=== PATIENT | male | born 1935 | race Caucasian/White ===

== ENCOUNTER → 2018-05-29 11:22 | Outpatient (CLI) | payer MEDICARE, SELFPAY ==
--- NOTE | 2018-05-29 | DI.RAD.S_ITS ---
PROCEDURE: XR CHEST 2V INDICATIONS: COUGH TECHNIQUE: 2 views of the chest were acquired. COMPARISON: [facility], , ABDOMEN ACUTE SERIES, 10/01/2012, 15:02. [facility], , CHEST 2 VIEW, 06/07/2010, 14:14. FINDINGS: Surgical changes and devices: Median sternotomy and CABG. Lungs and pleura: Elevated left hemidiaphragm with compressive atelectasis left lower lobe. No pleural effusions or pneumothorax. Lungs are otherwise clear. Azygous lobe. Mediastinum: Mediastinal contours are normal. Heart size is enlarged. Tortuous aorta. Bones and chest wall: No suspicious bony abnormalities. Thoracic spondylosis. Soft tissues appear unremarkable. IMPRESSION: Chronically elevated left hemidiaphragm with compressive atelectasis or scarring left lower lobe. No acute cardiopulmonary abnormality. Dictated by: Christopher Santillan M.D. on 05/29/2018 at 13:40 Approved by: Christopher Santillan M.D. on 05/29/2018 at 13:43
== END ==
PROVIDERS: Family Provider Family Medicine; PCP Family Medicine; Visit Provider Family Medicine
DX: R05 Cough (principal)
CPT/HCPCS: 71046

== ENCOUNTER → 2018-06-05 13:21 | Outpatient (CLI) | payer MEDICARE, SELFPAY ==
--- NOTE | 2018-06-05 | DI.CT.S_ITS ---
PROCEDURE: CT CHEST WO CON INDICATIONS: COUGH TECHNIQUE: Noncontrast 5 mm thick sections acquired from the pulmonary apices to the posterior costophrenic angles. 7 mm thick coronal and sagittal MIP reformats were then acquired. For radiation dose reduction, the following was used: automated exposure control, adjustment of mA and/or kV according to patient size. COMPARISON: [facility], CR, ABDOMEN ACUTE SERIES, 10/01/2012, 15:02. [facility], CT, KIDNEY/ URETER/BLADDER, 05/15/2012, 16:09. [facility], CT, CT-IVP, 05/24/2012, 14:06. [facility], CT, PE STUDY (CTA CHEST), 06/07/2010, 14:50. [facility], CR, CHEST 2 VIEW, 06/07/2010, 14:14. FINDINGS: Image quality: Excellent. Lungs and pleura: No acute air space opacities. Asymmetric elevation of the left hemidiaphragm, previously present, no underlying pneumonia or neoplasm found. Prior CABG. Left lung base atelectasis. No pleural effusions or pneumothorax. Central and peripheral airways are patent and normal in caliber. Mediastinum: Heart size is normal. No pericardial effusion. No mediastinal adenopathy by size criteria. Thoracic aorta and central pulmonary arteries are normal in size. Esophagus is normal in caliber. No hiatal hernia. Bones and chest wall: No suspicious bony lesions. No vertebral body compression fractures. No axillary or supraclavicular adenopathy by size criteria. Thyroid gland appears normal where well visualized.. Abdomen: Visualized upper abdominal solid organs and bowel loops appear normal in the absence of contrast. IMPRESSION: Chronic elevation of the left diaphragm is secondary left lung base atelectasis. No underlying pneumonia or neoplasm is suspected. Dictated by: Michael Ventura M.D. on 06/05/2018 at 14:34 Approved by: Michael Ventura M.D. on 06/05/2018 at 14:38
== END ==
PROVIDERS: Family Provider Family Medicine; PCP Family Medicine; Visit Provider Family Medicine
DX: R05 Cough (principal)
CPT/HCPCS: 71250

== ENCOUNTER → 2018-11-30 13:41 | Outpatient (CLI) | payer MEDICARE, SELFPAY ==
--- NOTE | 2018-11-30 | DI.US.S_ITS ---
PROCEDURE: US ABDOMEN COMPLETE INDICATIONS: ABNORMAL LEVEL OF SERUM LEVELS TECHNIQUE: Real-time scanning was performed of the abdominal and retroperitoneal organs, with image documentation. COMPARISON: [facility], CT, KIDNEY/ URETER/BLADDER, 05/15/2012, 16:09. FINDINGS: Liver: Liver is diffusely increased in echogenicity. No focal hepatic abnormalities identified. Normal hepatic size. Gallbladder: No gallstones identified. Normal gallbladder wall. No pericholecystic fluid. Negative sonographic Govea sign. Biliary ducts: Intrahepatic bile ducts are non-dilated. Extrahepatic bile duct caliber measures 5.0 mm. Normal is 6-7 mm or less in diameter, or 10 mm or less post-cholecystectomy. Pancreas: Visualized portions of the pancreas are sonographically normal. Spleen: Spleen is normal in size and homogeneous in echotexture. Kidneys: Kidneys are normal in size and echotexture. Right kidney measures 10.8 cm long; left kidney measures 11.7 cm long. No hydronephrosis or nephrolithiasis. No solid masses. Multiple right renal cysts, largest measuring 5.5 cm Aorta: Visualized aorta is normal in caliber at less than 3 cm. Iliacs: Proximal common iliac arteries are normal in caliber at less than 2.5 cm. IVC: Intrahepatic inferior vena cava is patent. Miscellaneous: No free abdominal fluid. IMPRESSION: 1. Increased hepatic echogenicity noted possibly related to hepatic steatosis but other sources of hepatocellular disease cannot be excluded. Recommend clinical correlation. 2. Multiple right renal cysts. Dictated by: Hay ARANA Interpreted: Issac Kirkland MD on 11/30/2018 at 16:38 Approved by: Issac Kirkland M.D. on 11/30/2018 at 17:24
== END ==
PROVIDERS: Family Provider Family Medicine; PCP Family Medicine; Visit Provider Family Medicine
DX: R74.8 Abnormal levels of other serum enzymes (principal); N28.1 Cyst of kidney, acquired
CPT/HCPCS: 76700

== ENCOUNTER 2021-03-19 12:22 | Emergency (ER) | payer MEDICARE, SELFPAY ==
[2021-03-19 12:31] VITALS: BP 152/91; PULSE 80; RESP 16; TEMP 36.7; O2SAT 97; BMI 27.1
--- NOTE | 2021-03-19 12:34 | DI.RAD.S_ITS ---
PROCEDURE: XR RIBS LT MIN 3V W CXR1V INDICATIONS: fall against a tree TECHNIQUE: 4 views of the left ribs were acquired, along with a single view chest. COMPARISON: [facility], , XR CHEST 2V, 05/29/2018, 11:04. FINDINGS: Surgical changes and devices: Multiple median sternotomy wires are intact. Mediastinal surgical clips compatible with prior revascularization procedure. Bones and chest wall: No fractures or dislocations. No definite acute displaced rib fractures. No suspicious bony lesions. Overlying soft tissues appear unremarkable. Lungs and pleura: Stable eventration of the left hemidiaphragm. Right lung is clear. Streaky left basilar opacities likely representing atelectasis. No focal consolidation. No pleural effusions or pneumothorax. Mediastinum: Mediastinal contours appear normal. Heart size is normal. IMPRESSION: 1. Chest without acute cardiopulmonary abnormalities. No acute, displaced rib fractures identified. 2. Left basilar atelectasis. Dictated by: Alen Li M.D. on 03/19/2021 at 13:22 Approved by: Alen Li M.D. on 03/19/2021 at 13:34
--- NOTE | 2021-03-19 12:45 | DI.RAD.S_ITS ---
PROCEDURE: XR KNEE RT 3V INDICATIONS: knee pain TECHNIQUE: 3 views of the knee were acquired. COMPARISON: None. FINDINGS: Bones: No acute fractures or dislocations. No suspicious bony lesions. Tricompartmental degenerative changes of the right knee. Soft tissues: Moderate-sized joint effusion. No suspicious soft tissue calcifications. Soft tissue swelling over the anterior right knee near the level of the patella. IMPRESSION: 1. Right knee without acute fracture or dislocation. 2. Moderate-sized joint effusion. 3. Mild soft tissue swelling over the anterior knee. 4. Tricompartmental degenerative change of the right knee. Dictated by: Alen Li M.D. on 03/19/2021 at 13:34 Approved by: Alen Li M.D. on 03/19/2021 at 13:35
--- NOTE | 2021-03-19 13:36 | ED_ITS ---
HPI - Back Pain/Injury General Chief Complaint: Back Pain/Injury Stated Complaint: back and right knee pain Time Seen by Provider: 03/19/21 12:35 Source: patient Mode of arrival: Ambulatory Limitations: no limitations History of Present Illness HPI Narrative: Patient is an 85-year-old male who is here for evaluation of right knee pain and also left-sided flank pain. Patient states that a couple days ago he was out in his yard and tripped and fell into 1 of his fruit trees and hit his left side. Has bruising on that side. His painful to touch. Painful to take big deep breaths. He has not had any fevers or coughing. Is also having right knee discomfort that was unrelated to this fall. Related Data Home Medications Medication Instructions Recorded Confirmed aspirin 81 mg PO QDAY #0 06/17/13 06/26/19 nebivolol [Bystolic] 10 mg PO QDAY #0 06/17/13 06/26/19 rosuvastatin [Crestor] 5 mg PO QDAY #0 tab 06/17/13 06/26/19 sertraline [Zoloft] 150 mg PO QDAY #0 06/17/13 06/26/19 Respironics System One Series CPAP #1 ea 03/19/19 06/26/19 Previous Rx's Medication Instructions Recorded tramadol [Ultram] 50 mg PO TID PRN #14 tab 03/19/21 Allergies Allergy/AdvReac Type Severity Reaction Status Date / Time No Known Allergies Allergy Uncoded 06/26/19 11:09 Review of Systems Constitutional Constitutional: Denies fever(s) Cardiovascular Cardiovascular: Denies chest pain Respiratory Respiratory: Reports pain on inspiration Gastrointestinal Gastrointestinal: Denies abdominal pain Musculoskeletal Comments: Right knee pain, left-sided rib pain Integumentary/Breasts Comments: Bruising on left side of ribs Hematologic/Lymphatic On Anticoagulants: No Allergic/Immunologic Allergic/Immunologic: Reports system reviewed and no additional complaints, except as documented Patient History Medical History Colitis Excessive daytime sleepiness Hyperlipidemia Hypertension Macular degeneration Obstructive sleep apnea of adult Pericardial effusion, acute Snoring Vertigo Surgical History H/O mitral valve replacement with mechanical valve (~2009) S/P CABG (coronary artery bypass graft) Social History marital status: occupational status: previously employed Previous occupational history: Teacher Smoking Status: Never smoker substance use type: does not use Smoking Status: Never smoker Exam Initial Vital Signs Initial Vital Signs: Vital Signs Temperature 98.1 F 03/19/21 12:31 Pulse Rate 80 03/19/21 12:31 Respiratory Rate 16 03/19/21 12:31 Blood Pressure 152/91 H 03/19/21 12:31 Pulse Oximetry 97 03/19/21 12:31 Const General: cooperative and comfortable Limitations: mental status not altered HENMT Head: normal to inspection and normocephalic Chest Other: Tenderness to palpation left lower ribs mid axillary line. No crepitus. Resp Effort & Inspection: normal respiratory effort Cardio Rate: regular rate Skin Other: Bruising left-sided ribs Neuro General: patient alert and patient awake Cognition: normal cognition Speech: speech normal Extrem General: capillary refill normal Psych Appearance: well kempt Course Orders Ordered: ED Orders 03/19/21 12:34 XR ribs LT min 3V w CXR1V Stat 03/19/21 12:45 XR knee RT 3V Stat Vital Signs Vital signs: Vital Signs - 8 hr 03/19/21 12:31 Temperature 98.1 F Pulse Rate 80 Respiratory Rate 16 Blood Pressure 152/91 H Pulse Oximetry 97 MDM - Back Pain/Injury Imaging Data Rib x-ray: Radiologist's Impression: [address] [id number] ReportSigned Patient: Vinay Hendrix R#: [id number]: 5Acct:[id number]/Sex: 85 / MDate of Service: 03/19/21Loc: EDAccession Number: [id number] Procedure: XR ribs LT min 3V w CXR1V Ordering Provider: Alec Hollins D.O. PROCEDURE: XR RIBS LT MIN 3V W CXR1V INDICATIONS: fall against a tree TECHNIQUE: 4 views of the left ribs were acquired, along with a single view chest. COMPARISON: [facility], , XR CHEST 2V, 05/29/2018, 11:04. FINDINGS: Surgical changes and devices: Multiple median sternotomy wires are intact. Mediastinal surgical clips compatible with prior revascularization procedure. Bones and chest wall: No fractures or dislocations. No definite acute displaced rib fractures. No suspicious bony lesions. Overlying soft tissues appear unremarkable. Lungs and pleura: Stable eventration of the left hemidiaphragm. Right lung is clear. Streaky left basilar opacities likely representing atelectasis. No focal consolidation. No pleural effusions or pneumothorax. Mediastinum: Mediastinal contours appear normal. Heart size is normal. IMPRESSION: 1. Chest without acute cardiopulmonary abnormalities. No acute, displaced rib fractures identified. 2. Left basilar atelectasis. Dictated by: Alen Li M.D. on 03/19/2021 at 13:22 Approved by: Alen Li M.D. on 03/19/2021 at 13:34 Extremity x-ray #1: Radiologist's Impression: [address] [id number] ReportSigned Patient: Vinay Hendrix VMR#: [id number]: 5Acct:[id number]/Sex: 85 / MDate of Service: 03/19/21Loc: EDAccession Number: [id number] Procedure: XR knee RT 3V Ordering Provider: Alec Hollins D.O. PROCEDURE: XR KNEE RT 3V INDICATIONS: knee pain TECHNIQUE: 3 views of the knee were acquired. COMPARISON: None. FINDINGS: Bones: No acute fractures or dislocations. No suspicious bony lesions. Tricompartmental degenerative changes of the right knee. Soft tissues: Moderate-sized joint effusion. No suspicious soft tissue calcifications. Soft tissue swelling over the anterior right knee near the level of the patella. IMPRESSION: 1. Right knee without acute fracture or dislocation. 2. Moderate-sized joint effusion. 3. Mild soft tissue swelling over the anterior knee. 4. Tricompartmental degenerative change of the right knee. Dictated by: Alen Li M.D. on 03/19/2021 at 13:34 Approved by: Alen Li M.D. on 03/19/2021 at 13:35 [facility] Narrative Medical decision making narrative: Chest x-ray and knee x-ray unremarkable. There are no displaced rib fractures. He is not in respiratory distress. He has had bruising over his left flank. He is afebrile. I did discuss the limitations of the chest x-ray and that there potentially is a nondisplaced rib fracture. He does have an incentive spirometer at home after a hospitalization earlier this month. He does have tenderness to palpation throughout his right knee however there were no fractures. He was given return precautions. Expressed understanding agreement. Discharge Plan Departure Patient Disposition: Home Clinical Impression: Contusion of rib on left side Instructions: DI for Rib Contusion Activity Restrictions/Additional Instructions: I do recommend that you use the incentive spirometer at home every couple hours. Use the pain medication as needed. Despite all of this coughing and sneezing will potentially be somewhat painful. You can hold a pillow over the left side of your chest as this may help the symptoms. Contact your primary provider for follow-up. Return to the emergency department for any new or worsening symptoms Prescriptions: New tramadol [Ultram] 50 mg tablet 50 mg PO TID PRN (Reason: pain) Qty: 14 RF: 0 No Action sertraline [Zoloft] 100 MG tablet 150 mg PO QDAY Qty: 0 RF: 0 aspirin 81 MG tablet,delayed release (DR/EC) 81 mg PO QDAY Qty: 0 RF: 0 rosuvastatin [Crestor] 5 MG tablet 5 mg PO QDAY Qty: 0 RF: 0 nebivolol [Bystolic] 10 MG tablet 10 mg PO QDAY Qty: 0 RF: 0 (DME) Respironics System One Series CPAP Qty: 1 RF: 0 Referrals: Tarun Paulino MD [Primary Care Provider] -
[2021-03-19 14:11] VITALS: BP 140/91; PULSE 68; RESP 16; O2SAT 96
== END 2021-03-19 14:12 | disposition home or self-care (01) ==
PROVIDERS: Emergency Provider Emergency Medicine; Family Provider Family Medicine; PCP Family Medicine
DX: R07.81 Pleurodynia (principal); S20.212A Contusion of left front wall of thorax, initial encounter; W19.XXXA Unspecified fall, initial encounter
CPT/HCPCS: 71101; 73562; 99281; 99283

== ENCOUNTER 2022-12-24 11:56 | Emergency (ER) | payer MEDICARE, SELFPAY ==
[2022-12-24] VITALS (7 sets, daily range): BP systolic 114–135; BP diastolic 60–72; PULSE 64–77; RESP 16–18; TEMP 36.7; O2SAT 92–96; BMI 29.1
--- NOTE | 2022-12-24 12:22 | DI.RAD.S_ITS ---
PROCEDURE: XR CHEST 2V INDICATIONS: coughing, rhonchi, sats 90's TECHNIQUE: 2 views of the chest were acquired. COMPARISON: [facility], CR, XR CHEST 2V, 05/29/2018, 11:04. FINDINGS: Surgical changes and devices: Status post median sternotomy. Lungs and pleura: There is elevation of the left hemidiaphragm with adjacent compressive atelectasis of the left lower lobe. Possible azygos lobe. Mediastinum: Mediastinal contours are normal. Heart size is normal. Bones and chest wall: No suspicious bony abnormalities. Soft tissues appear unremarkable. IMPRESSION: Elevation of the left hemidiaphragm with adjacent compressive atelectasis unchanged compared to 2018. No acute abnormality. Dictated by: Ezra Cristobal M.D. on 12/24/2022 at 12:34 Approved by: Ezra Cristobal M.D. on 12/24/2022 at 12:43
--- NOTE | 2022-12-24 13:48 | ED.URI ---
HPI - URI/Sore Throat <GURDEEP Zuleta - Last Filed: 12/24/22 15:59> General Chief Complaint: Upper Respiratory Symptoms Stated Complaint: Sick for a week, low oxy, fever Time Seen by Provider: 12/24/22 13:35 History of Present Illness HPI Narrative: This is an 87 year gentleman who presents to the emergency department with his concerned about his upper respiratory cough, fatigue, and symptoms which have been worsening over the last week. Patient and his report increased fatigue over the last 2 days, short of breath with activity, decreased oxygen saturation and a cough. He denies having a large amount of sputum. States that he has history of BREE, also has history of sternotomy with mitral valve repair 15 years ago, has completed cardiac rehab. The hospital. 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 He is not anticoagulated, denies fever, chills, states he vomited 1 time a week ago but no vomiting recently. States that he feels nauseated, denies weakness, difficulty breathing or wheezing. Related Data Home Medications Medication Instructions Recorded Confirmed aspirin 81 mg tablet,delayed 81 mg PO QDAY ##0 06/17/13 07/20/22 release sertraline 100 mg tablet (Zoloft) 150 mg PO QDAY ##0 06/17/13 07/20/22 Respironics System One Series CPAP #1 ea 03/19/19 07/20/22 atenolol PO DAILY 07/20/22 tamsulosin 0.4 mg capsule 0.8 mg PO DAILY 07/20/22 07/20/22 Allergies Allergy/AdvReac Type Severity Reaction Status Date / Time No Known Drug Allergies Allergy Verified 12/24/22 14:35 Review of Systems <GURDEEP Zuleta - Last Filed: 12/24/22 15:59> Review of Systems ROS Unobtainable: All systems reviewed & are unremarkable except as noted in HPI and below Patient History <GURDEEP Zuleta - Last Filed: 12/24/22 15:59> Medical History Colitis Complex sleep apnea syndrome Excessive daytime sleepiness Hyperlipidemia Hypertension Macular degeneration Obstructive sleep apnea of adult Pericardial effusion, acute Snoring Vertigo Surgical History H/O mitral valve replacement with mechanical valve (~2009) S/P CABG (coronary artery bypass graft) Social History marital status: occupational status: previously employed Previous occupational history: Teacher Smoking Status: Never smoker substance use type: does not use Smoking Status: Never smoker Exam <GURDEEP Zuleta - Last Filed: 12/24/22 15:59> Narrative Exam Narrative: Reviewed vitals signs and nursing notes. General: cooperative, in no acute distress, well groomed HEENT: symmetrical facial expressions, moist mucous membranes, neck is supple CV: regular rate and rhythm with murmur, warm extremities Respiratory:normal work of breathing, without tachypnea, he has crackles to the left middle lobe region anterior and posteriorly without decreased breath sounds otherwise. Without stridor or increased work of breathing he has an occasional cough, nonproductive GI: abdomen soft protuberant,, nontender to palpation in all quadrants, nondistended, without masses, rebound tenderness or CVA tenderness bilaterally. Patient passing gas MSK: moves all extremities, neurovascularly intact, no weakness, normal tone Skin: brisk capillary refill, without rash or wound Neuro: normal speech and cognition, A&O x3, ambulatory, clear speech Initial Vital Signs Initial Vital Signs: Vital Signs Temperature 98.0 F 12/24/22 12:10 Pulse Rate 74 12/24/22 12:10 Respiratory Rate 16 12/24/22 12:10 Blood Pressure 114/64 12/24/22 12:10 Pulse Oximetry 92 12/24/22 12:10 Oxygen Delivery Method Room Air 12/24/22 12:10 <Alec Hollins DO - Last Filed: 12/24/22 16:34> Initial Vital Signs Initial Vital Signs: Vital Signs Temperature 98.0 F 12/24/22 12:10 Pulse Rate 74 12/24/22 12:10 Respiratory Rate 16 12/24/22 12:10 Blood Pressure 114/64 12/24/22 12:10 Pulse Oximetry 92 12/24/22 12:10 Oxygen Delivery Method Room Air 12/24/22 12:10 Course <GURDEEP Zuleta - Last Filed: 12/24/22 15:59> Orders Ordered: ED Orders 12/24/22 12:19 Respiratory Panel (Film Array) Stat 12/24/22 12:22 XR chest 2V Stat 12/24/22 13:49 BNP [NT-proBNP (BNP-Adult 18+)] Stat CBC Auto Diff [Complete Blood Count AUTO DIFF] Stat CMP [Comprehensive Metabolic Panel] Stat CRP [C-Reactive Protein Quant] Stat Lactate (Lactic Acid) Stat Magnesium Stat 12/24/22 14:02 EKG-12 Lead Stat Discontinued Medications Amoxicillin/Clavulanate Potassium (Amoxicillin/Clav 875/125 Mg) 1 tab PO NOW ONE Stop: 12/24/22 13:48 Last Admin: 12/24/22 14:22 Dose: 1 tab Documented By: AT Doxycycline Hyclate (Doxycycline Hyclate 100 Mg Tablet) 100 mg PO NOW ONE Stop: 12/24/22 13:48 Last Admin: 12/24/22 14:22 Dose: 100 mg Documented By: AT Prednisone (Prednisone 20 Mg Tablet) 20 mg PO NOW ONE Stop: 12/24/22 13:48 Last Admin: 12/24/22 14:22 Dose: 20 mg Documented By: AT Vital Signs Vital signs: Vital Signs - 8 hr 12/24/22 12:10 12/24/22 13:42 12/24/22 14:21 Temperature 98.0 F Pulse Rate 74 64 Respiratory Rate 16 18 Blood Pressure 114/64 119/60 Pulse Oximetry 92 96 92 Oxygen Delivery Method Room Air Room Air Room Air 12/24/22 13:41 12/24/22 14:00 12/24/22 14:25 Temperature Pulse Rate 64 66 Respiratory Rate Blood Pressure 135/72 Pulse Oximetry 92 93 Oxygen Delivery Method Room Air Room Air 12/24/22 14:25 12/24/22 14:30 Temperature Pulse Rate 77 69 Respiratory Rate Blood Pressure Pulse Oximetry Oxygen Delivery Method <Alec Hollins DO - Last Filed: 12/24/22 16:34> Orders Ordered: ED Orders 12/24/22 12:19 Respiratory Panel (Film Array) Stat 12/24/22 12:22 XR chest 2V Stat 12/24/22 13:49 BNP [NT-proBNP (BNP-Adult 18+)] Stat CBC Auto Diff [Complete Blood Count AUTO DIFF] Stat CMP [Comprehensive Metabolic Panel] Stat CRP [C-Reactive Protein Quant] Stat Lactate (Lactic Acid) Stat Magnesium Stat 12/24/22 14:02 EKG-12 Lead Stat Discontinued Medications Amoxicillin/Clavulanate Potassium (Amoxicillin/Clav 875/125 Mg) 1 tab PO NOW ONE Stop: 12/24/22 13:48 Last Admin: 12/24/22 14:22 Dose: 1 tab Documented By: AT Doxycycline Hyclate (Doxycycline Hyclate 100 Mg Tablet) 100 mg PO NOW ONE Stop: 12/24/22 13:48 Last Admin: 12/24/22 14:22 Dose: 100 mg Documented By: AT Prednisone (Prednisone 20 Mg Tablet) 20 mg PO NOW ONE Stop: 12/24/22 13:48 Last Admin: 12/24/22 14:22 Dose: 20 mg Documented By: AT Vital Signs Vital signs: Vital Signs - 8 hr 12/24/22 12:10 12/24/22 13:42 12/24/22 14:21 Temperature 98.0 F Pulse Rate 74 64 Respiratory Rate 16 18 Blood Pressure 114/64 119/60 Pulse Oximetry 92 96 92 Oxygen Delivery Method Room Air Room Air Room Air 12/24/22 13:41 12/24/22 14:00 12/24/22 14:25 Temperature Pulse Rate 64 66 Respiratory Rate Blood Pressure 135/72 Pulse Oximetry 92 93 Oxygen Delivery Method Room Air Room Air 12/24/22 14:25 12/24/22 14:30 Temperature Pulse Rate 77 69 Respiratory Rate Blood Pressure Pulse Oximetry Oxygen Delivery Method MDM - URI/Sore Throat <Yadira Bain [facility] - Last Filed: 12/24/22 15:59> Lab Data 12/24/22 13:49 12/24/22 13:49 Labs: Lab Results 12/24/22 12/24/22 12/24/22 Range/Units 12:19 13:49 13:49 WBC 8.0 (4.5-11.0) X10^3/uL RBC 3.58 L (4.5-5.9) X10^6/uL Hgb 11.5 L (13.5-17.5) g/dL Hct 34.5 L (41-53) % MCV 96.2 (80-100) fL MCH 32.0 (26-34) PG MCHC 33.3 (30-36) % RDW 13.8 (11.6-14.8) % Plt Count 153 (150-400) X10^3/uL Neut % (Auto) 73.9 (50-75) % Lymph % (Auto) 18.4 L (25-40) % Dolores % (Auto) 6.2 (3-14) % Eos % (Auto) 1.3 L (2-4) % Baso % (Auto) 0.2 (0-2) % Neut # (Auto) 5900 (0340-1132) /uL Lymph # (Auto) 1500 (0076-0951) /uL Dolores # (Auto) 500 (0-900) /uL Eos # (Auto) 100 (0-450) /uL Baso # (Auto) 0 (0-100) /uL Sodium 137 (137-145) mmol/L Potassium 3.1 L (3.4-5.1) mmol/L Chloride 104 (98-107) mmol/L Carbon Dioxide 27 (22-32) mmol/L BUN 12 (9-20) mg/dL Creatinine 0.78 (0.66-1.25) mg/dL Estimated GFR > 60 (>60) mL/min BUN/Creatinine Ratio 15.4 (6-22) Glucose 110 (80-110) mg/dL Lactate (0.7-2.1) mmol/L Calcium 8.3 L (8.4-10.2) mg/dL Magnesium (1.6-2.3) mg/dL Total Bilirubin 0.8 (0.2-1.3) mg/dL AST 23 (17-59) IU/L ALT 23 (<50) IU/L Alkaline Phosphatase 81 (38-126) U/L C-Reactive Protein (<1.0) mg/dL NT-Pro-B Natriuret Pep 1970 H (<450) pg/mL Total Protein 5.9 L (6.3-8.2) g/dL Albumin 3.3 L (3.5-5.0) g/dL Globulin 2.6 (1.7-4.1) g/dL Albumin/Globulin Ratio 1.3 (1.0-2.8) Chlamy pneumoniae PCR Not detected (Not Detect) Adenovirus (PCR) Not detected (Not Detect) B. pertussis DNA (PCR) Not detected (Not Detecte) B.parapertussis DNA PCR Not detected (Not Detecte) Coronavirus OC43 (PCR) Not detected (Not Detect) Coronavirus HKU1 (PCR) Not detected (Not Detect) Coronavirus 229E (PCR) Not detected (Not Detect) SARS-CoV-2 (PCR) Detected H (Not Detecte) Coronavirus NL63 (PCR) Not detected (Not Detect) Human Metapneumovir PCR Not detected (Not Detect) Influenza Type A (PCR) Not detected (Not Detect) Influenza Type B (PCR) Not detected (Not Detect) M. pneumoniae (PCR) Not detected (Not Detect) Parainfluenza 1 (PCR) Not detected (Not Detect) Parainfluenza 2 (PCR) Not detected (Not Detect) Parainfluenza 3 (PCR) Not detected (Not Detect) Parainfluenza 4 (PCR) Not detected (Not Detect) RSV (PCR) Not detected (Not Detect) Entero/Rhino (PCR) Not detected (Not Detect) 12/24/22 12/24/22 12/24/22 Range/Units 13:49 13:49 13:49 WBC (4.5-11.0) X10^3/uL RBC (4.5-5.9) X10^6/uL Hgb (13.5-17.5) g/dL Hct (41-53) % MCV (80-100) fL MCH (26-34) PG MCHC (30-36) % RDW (11.6-14.8) % Plt Count (150-400) X10^3/uL Neut % (Auto) (50-75) % Lymph % (Auto) (25-40) % Dolores % (Auto) (3-14) % Eos % (Auto) (2-4) % Baso % (Auto) (0-2) % Neut # (Auto) (2856-2579) /uL Lymph # (Auto) (0436-3502) /uL Dolores # (Auto) (0-900) /uL Eos # (Auto) (0-450) /uL Baso # (Auto) (0-100) /uL Sodium (137-145) mmol/L Potassium (3.4-5.1) mmol/L Chloride (98-107) mmol/L Carbon Dioxide (22-32) mmol/L BUN (9-20) mg/dL Creatinine (0.66-1.25) mg/dL Estimated GFR (>60) mL/min BUN/Creatinine Ratio (6-22) Glucose (80-110) mg/dL Lactate 1.0 (0.7-2.1) mmol/L Calcium (8.4-10.2) mg/dL Magnesium 1.9 (1.6-2.3) mg/dL Total Bilirubin (0.2-1.3) mg/dL AST (17-59) IU/L ALT (<50) IU/L Alkaline Phosphatase (38-126) U/L C-Reactive Protein 15.2 H (<1.0) mg/dL NT-Pro-B Natriuret Pep (<450) pg/mL Total Protein (6.3-8.2) g/dL Albumin (3.5-5.0) g/dL Globulin (1.7-4.1) g/dL Albumin/Globulin Ratio (1.0-2.8) Chlamy pneumoniae PCR (Not Detect) Adenovirus (PCR) (Not Detect) B. pertussis DNA (PCR) (Not Detecte) B.parapertussis DNA PCR (Not Detecte) Coronavirus OC43 (PCR) (Not Detect) Coronavirus HKU1 (PCR) (Not Detect) Coronavirus 229E (PCR) (Not Detect) SARS-CoV-2 (PCR) (Not Detecte) Coronavirus NL63 (PCR) (Not Detect) Human Metapneumovir PCR (Not Detect) Influenza Type A (PCR) (Not Detect) Influenza Type B (PCR) (Not Detect) M. pneumoniae (PCR) (Not Detect) Parainfluenza 1 (PCR) (Not Detect) Parainfluenza 2 (PCR) (Not Detect) Parainfluenza 3 (PCR) (Not Detect) Parainfluenza 4 (PCR) (Not Detect) RSV (PCR) (Not Detect) Entero/Rhino (PCR) (Not Detect) Imaging Data Chest x-ray: Radiologist's Impression: PROCEDURE:? XR CHEST 2V ? INDICATIONS:? coughing, rhonchi, sats 90's ? TECHNIQUE:? 2 views of the chest were acquired.? ? COMPARISON:? [facility], CR, XR CHEST 2V, 05/29/2018, 11:04. ? FINDINGS:? ? Surgical changes and devices:? Status post median sternotomy. ? Lungs and pleura:? There is elevation of the left hemidiaphragm with adjacent compressive atelectasis of the left lower lobe.? Possible azygos lobe. ? Mediastinum:? Mediastinal contours are normal.? Heart size is normal.? ? Bones and chest wall:? No suspicious bony abnormalities.? Soft tissues appear unremarkable.? ? IMPRESSION:? Elevation of the left hemidiaphragm with adjacent compressive atelectasis unchanged compared to 2018. No acute abnormality.? ? ? Dictated by: Ezra Cristobal M.D. on 12/24/2022 at 12:34 ? ? Approved by: Ezra Cristobal M.D. on 12/24/2022 at 12:43 ? MDM Narrative Medical decision making narrative: Chief Complaint: Upper respiratory infection/concern for pneumonia Independent historian: Patient Differential diagnoses include but are not limited to: Acute viral process, CHF exacerbation, bronchitis, pneumonia, ACS, pulmonary embolus, reactive airway disease, I have independently reviewed the patient's vital signs and nursing notes as well as prior records if available. Pertinent lab findings reviewed: Respiratory panel is positive for COVID-19 Pertinent Imaging reviewed: Two-view chest x-ray without acute abnormality however patient has a left hemidiaphragm, soft abdomen to palpation, has crackles to his left middle/lower lobe anterior and posteriorly Clinical decision rules or scores evaluated: Curb 65 indicates low risk for mortality at 30 days and consider outpatient treatment. Course of care: Patient's respiratory panel came back positive for COVID-19, he has mild crackles to the left lower quadrant, on repeat pulse oximetry he has remained in the 90s without supplemental O2. He is not have increased work of breathing, hypoxia, productive cough, fever chills, he does not have tachycardia although he is on atenolol. He does not have severe symptoms of respiratory illness today.. After I examined him any crackles to the left middle lobe, lab work and antibiotics were ordered prior to the COVID swabbing complete. When this came back positive and he has not received his medications yet these were canceled and unfortunately due to the EMR not discontinuing these medications on the nurse's Mar, he received a dose of prednisone, Augmentin and doxycycline. I do not intend to continue these medications as he does not have a patchy focal infiltrate, he is not have fever chills and he is given strict return precautions come back to emergency department. He is had symptoms for approximately 10 days so Paxlovid is not indicated. He understands to return to the emergency department if he has any worsening, he is tolerating p.o. and has not had any vomiting for 1 week. Social considerations that may affect disposition: none Questions are addressed and there is agreement with the plan and for follow-up. Patient is appropriate for outpatient management. MIPS: This encounter doesn't have any diagnosis' associated with MIPS criteria. <Alec Hollins DO - Last Filed: 12/24/22 16:34> Lab Data Labs: Lab Results 12/24/22 12/24/22 12/24/22 Range/Units 12:19 13:49 13:49 WBC 8.0 (4.5-11.0) X10^3/uL RBC 3.58 L (4.5-5.9) X10^6/uL Hgb 11.5 L (13.5-17.5) g/dL Hct 34.5 L (41-53) % MCV 96.2 (80-100) fL MCH 32.0 (26-34) PG MCHC 33.3 (30-36) % RDW 13.8 (11.6-14.8) % Plt Count 153 (150-400) X10^3/uL Neut % (Auto) 73.9 (50-75) % Lymph % (Auto) 18.4 L (25-40) % Dolores % (Auto) 6.2 (3-14) % Eos % (Auto) 1.3 L (2-4) % Baso % (Auto) 0.2 (0-2) % Neut # (Auto) 5900 (4564-1375) /uL Lymph # (Auto) 1500 (3486-8473) /uL Dolores # (Auto) 500 (0-900) /uL Eos # (Auto) 100 (0-450) /uL Baso # (Auto) 0 (0-100) /uL Sodium 137 (137-145) mmol/L Potassium 3.1 L (3.4-5.1) mmol/L Chloride 104 (98-107) mmol/L Carbon Dioxide 27 (22-32) mmol/L BUN 12 (9-20) mg/dL Creatinine 0.78 (0.66-1.25) mg/dL Estimated GFR > 60 (>60) mL/min BUN/Creatinine Ratio 15.4 (6-22) Glucose 110 (80-110) mg/dL Lactate (0.7-2.1) mmol/L Calcium 8.3 L (8.4-10.2) mg/dL Magnesium (1.6-2.3) mg/dL Total Bilirubin 0.8 (0.2-1.3) mg/dL AST 23 (17-59) IU/L ALT 23 (<50) IU/L Alkaline Phosphatase 81 (38-126) U/L C-Reactive Protein (<1.0) mg/dL NT-Pro-B Natriuret Pep 1970 H (<450) pg/mL Total Protein 5.9 L (6.3-8.2) g/dL Albumin 3.3 L (3.5-5.0) g/dL Globulin 2.6 (1.7-4.1) g/dL Albumin/Globulin Ratio 1.3 (1.0-2.8) Chlamy pneumoniae PCR Not detected (Not Detect) Adenovirus (PCR) Not detected (Not Detect) B. pertussis DNA (PCR) Not detected (Not Detecte) B.parapertussis DNA PCR Not detected (Not Detecte) Coronavirus OC43 (PCR) Not detected (Not Detect) Coronavirus HKU1 (PCR) Not detected (Not Detect) Coronavirus 229E (PCR) Not detected (Not Detect) SARS-CoV-2 (PCR) Detected H (Not Detecte) Coronavirus NL63 (PCR) Not detected (Not Detect) Human Metapneumovir PCR Not detected (Not Detect) Influenza Type A (PCR) Not detected (Not Detect) Influenza Type B (PCR) Not detected (Not Detect) M. pneumoniae (PCR) Not detected (Not Detect) Parainfluenza 1 (PCR) Not detected (Not Detect) Parainfluenza 2 (PCR) Not detected (Not Detect) Parainfluenza 3 (PCR) Not detected (Not Detect) Parainfluenza 4 (PCR) Not detected (Not Detect) RSV (PCR) Not detected (Not Detect) Entero/Rhino (PCR) Not detected (Not Detect) 12/24/22 12/24/22 12/24/22 Range/Units 13:49 13:49 13:49 WBC (4.5-11.0) X10^3/uL RBC (4.5-5.9) X10^6/uL Hgb (13.5-17.5) g/dL Hct (41-53) % MCV (80-100) fL MCH (26-34) PG MCHC (30-36) % RDW (11.6-14.8) % Plt Count (150-400) X10^3/uL Neut % (Auto) (50-75) % Lymph % (Auto) (25-40) % Dolores % (Auto) (3-14) % Eos % (Auto) (2-4) % Baso % (Auto) (0-2) % Neut # (Auto) (6040-3638) /uL Lymph # (Auto) (4774-8513) /uL Dolores # (Auto) (0-900) /uL Eos # (Auto) (0-450) /uL Baso # (Auto) (0-100) /uL Sodium (137-145) mmol/L Potassium (3.4-5.1) mmol/L Chloride (98-107) mmol/L Carbon Dioxide (22-32) mmol/L BUN (9-20) mg/dL Creatinine (0.66-1.25) mg/dL Estimated GFR (>60) mL/min BUN/Creatinine Ratio (6-22) Glucose (80-110) mg/dL Lactate 1.0 (0.7-2.1) mmol/L Calcium (8.4-10.2) mg/dL Magnesium 1.9 (1.6-2.3) mg/dL Total Bilirubin (0.2-1.3) mg/dL AST (17-59) IU/L ALT (<50) IU/L Alkaline Phosphatase (38-126) U/L C-Reactive Protein 15.2 H (<1.0) mg/dL NT-Pro-B Natriuret Pep (<450) pg/mL Total Protein (6.3-8.2) g/dL Albumin (3.5-5.0) g/dL Globulin (1.7-4.1) g/dL Albumin/Globulin Ratio (1.0-2.8) Chlamy pneumoniae PCR (Not Detect) Adenovirus (PCR) (Not Detect) B. pertussis DNA (PCR) (Not Detecte) B.parapertussis DNA PCR (Not Detecte) Coronavirus OC43 (PCR) (Not Detect) Coronavirus HKU1 (PCR) (Not Detect) Coronavirus 229E (PCR) (Not Detect) SARS-CoV-2 (PCR) (Not Detecte) Coronavirus NL63 (PCR) (Not Detect) Human Metapneumovir PCR (Not Detect) Influenza Type A (PCR) (Not Detect) Influenza Type B (PCR) (Not Detect) M. pneumoniae (PCR) (Not Detect) Parainfluenza 1 (PCR) (Not Detect) Parainfluenza 2 (PCR) (Not Detect) Parainfluenza 3 (PCR) (Not Detect) Parainfluenza 4 (PCR) (Not Detect) RSV (PCR) (Not Detect) Entero/Rhino (PCR) (Not Detect) Discharge Plan Departure Patient Disposition: Home Clinical Impression: COVID-19 Instructions: COVID-19 Activity Restrictions/Additional Instructions: *You have been diagnosed COVID-19, and you have some congestion in the lower part of your lung. Please continue using your sleep apnea machine, stay hydrated, use the incentive spirometer to help open up the lower parts of your lungs. Take Zyrtec daily and use Flonase as needed for your congestion. You should start to feel better soon hopefully. Please take these medications with food and water, return if you have worsening of your symptoms. You should need to take antibiotics as there is no patchy area of pneumonia. Please practice using the incentive spirometer frequently, stay hydrated, return for new or worsening symptoms, since you have been ill for this long, treatment for COVID is not indicated at this point. *What to do: *Please continue to take your regular medications as directed. [ ] New medication prescriptions sent to your pharmacy: [ ] [ ] New medication written as a paper prescription [ x] No new medications given *Please follow up with your primary care provider in 2-3 days, call for an appointment. Let them know you were seen in the Emergency Department and that we asked that you be seen for follow-up. We will electronically transmit a record of today's note if your PCP is in our system *If you do not have a primary care provider please contact [phone] to establish care with one of the [facility] primary care providers. *Return to Emergency Department if you should have any new, worsening, or concerning symptoms, such as [fever greater than 101F, chills, worsening pain, persistent vomiting or other bothersome symptoms]. Prescriptions: No Action sertraline [Zoloft] 100 MG tablet 150 mg PO QDAY Qty: 0 aspirin 81 MG tablet,delayed release (DR/EC) 81 mg PO QDAY Qty: 0 (DME) Respironics System One Series CPAP Qty: 1 Dose Instruction: As directed Patient Comments: Pressure: 6-14 cmH2O DME: [facility] Rx Instructions: As directed tamsulosin 0.4 mg capsule 0.8 mg PO DAILY atenolol PO DAILY Referrals: Tarun Paulino MD [Primary Care Provider] - Stand Alone Forms: Patient Portal/API <Alec Hollins, DO - Last Filed: 12/24/22 16:34> Cosign ED Attending Cosignature Attestation: Dr Hollins Co-Sign Statement: I was available for consultation during this patient's emergency department visit. This chart is signed by myself for administrative purposes only. I did not have direct contact with this patient during this visit. They were seen independently by the APC.
[2022-12-24 14:02] LABS: Add Manual Diff / Slide Review NO; Basophils Absolute Auto 0 /uL (0-100); Basophils Percent Auto 0.2 % (0-2); Eosinophils Absolute Auto 100 /uL (0-450); Eosinophils Percent Auto 1.3 % (2-4); Hematocrit 34.5 % (41-53); Hemoglobin 11.5 g/dL (13.5-17.5); Lymphocytes Absolute Auto 1500 /uL (1100-4500); Lymphocytes Percent Auto 18.4 % (25-40); Mean Corpuscular HGB Conc 33.3 % (30-36); Mean Corpuscular Volume 96.2 fL (80-100); Monocytes Absolute Auto 500 /uL (0-900); Monocytes Percent Auto 6.2 % (3-14); Neutrophils Absolute Auto 5900 /uL (1500-7000); Neutrophils Percent Auto 73.9 % (50-75); Platelet Count 153 X10^3/uL (150-400); Red Blood Cell Count 3.58 X10^6/uL (4.5-5.9); Red Cell Distribution Width 13.8 % (11.6-14.8)
[2022-12-24 14:11] LABS: Adenovirus Not Detected (Not Detect); B. parapertussis Not Detected (Not Detecte); Bordetella pertussis Not Detected (Not Detecte); Chlamydophila pneumoniae Not Detected (Not Detect); Coronavirus 229E Not Detected (Not Detect); Coronavirus HKU1 Not Detected (Not Detect); Coronavirus NL 63 Not Detected (Not Detect); Coronavirus OC43 Not Detected (Not Detect); Human Metapneumovirus Not Detected (Not Detect); Human Rhinovirus/Enterovirus Not Detected (Not Detect); Influenza A Not Detected (Not Detect); Influenza B Not Detected (Not Detect); Mycoplasma pneumoniae Not Detected (Not Detect); Parainfluenza Virus 1 Not Detected (Not Detect); Parainfluenza Virus 2 Not Detected (Not Detect); Parainfluenza Virus 3 Not Detected (Not Detect); Parainfluenza Virus 4 Not Detected (Not Detect); Respiratory Syncytial Virus Not Detected (Not Detect)
[2022-12-24 14:12] LABS: SARS- CoV-2 Detected (Not Detecte)
[2022-12-24] MEDS: DOXYCYCLINE HYCLATE 100 MG TABLET PO (14:22)
[2022-12-24] MEDS: predniSONE 20 MG TABLET PO (14:22)
[2022-12-24] MEDS: AMOXICILLIN/CLAV 875/125 MG 1 TAB PO (14:22)
[2022-12-24 14:23] LABS: Alanine Aminotransferase 23 IU/L (<50); Albumin 3.3 g/dL (3.5-5.0); Albumin Globulin Ratio 1.3 (1.0-2.8); Alkaline Phosphatase 81 U/L (38-126); Aspartate Aminotransferase 23 IU/L (17-59); BUN Creatinine Ratio 15.4 (6-22); Bilirubin Total 0.8 mg/dL (0.2-1.3); Blood Urea Nitrogen 12 mg/dL (9-20); Calcium 8.3 mg/dL (8.4-10.2); Carbon Dioxide 27 mmol/L (22-32); Chloride 104 mmol/L (98-107); Estimated Glomerular Filt Rate > 60 mL/min (>60); Globulin 2.6 g/dL (1.7-4.1); Glucose 110 mg/dL (80-110); HEMOLYSIS < 15 (0-50); Magnesium 1.9 mg/dL (1.6-2.3); Potassium 3.1 mmol/L (3.4-5.1); Sodium 137 mmol/L (137-145); Total Protein 5.9 g/dL (6.3-8.2)
[2022-12-24 14:31] LABS: NT-proBNP (BNP-Adult 18+) 1970 pg/mL (<450)
[2022-12-24 15:05] LABS: C-Reactive Protein Quant 15.2 mg/dL (<1.0)
== END 2022-12-24 15:02 | disposition home or self-care (01) ==
PROVIDERS: Emergency Medicine; Emergency Provider Nurse Practitioner Critical Care Medicine; Family Provider Family Medicine; PCP Family Medicine
DX: U07.1 COVID-19 (principal); R07.9 Chest pain, unspecified
CPT/HCPCS: 36415; 71046; 80053; 83605; 83735; 83880; 85025; 86140; 87633; 93005; 93010; 99284

== ENCOUNTER → 2023-01-02 16:31 | Outpatient (CLI) | payer MEDICARE, SELFPAY ==
--- NOTE | 2023-01-02 16:36 | DI.RAD.S_ITS ---
PROCEDURE: XR CHEST 2V INDICATIONS: Covid 19 TECHNIQUE: 2 views of the chest were acquired. COMPARISON: [facility], CR, XR CHEST 2V, 12/24/2022, 12:36. [facility], CR, XR CHEST 2V, 05/29/2018, 11:04. FINDINGS: Surgical changes and devices: Prior median sternotomy. Lungs and pleura: Elevation of the left hemidiaphragm as before. Bilateral interstitial and patchy airspace opacities present. No large pleural effusion or pneumothorax Mediastinum: Cardiac silhouette is at the upper limit of normal in size. Bones and chest wall: No suspicious bony abnormalities. Soft tissues appear unremarkable. IMPRESSION: Bilateral pulmonary opacities could represent sequela of viral or atypical infection or fluid overload/CHF. Dictated by: Barak Hawthorne M.D. on 01/02/2023 at 17:31 Approved by: Barak Hawthorne M.D. on 01/02/2023 at 17:33
== END ==
PROVIDERS: Family Provider Family Medicine; PCP Family Medicine; Referring Provider Family Medicine; Visit Provider Family Medicine
DX: U07.1 COVID-19 (principal)
CPT/HCPCS: 71046

== ENCOUNTER → 2023-01-17 11:21 | Outpatient (CLI) | payer MEDICARE, SELFPAY ==
--- NOTE | 2023-01-17 | DI.RAD.S_ITS ---
PROCEDURE: XR CHEST 2V INDICATIONS: COVID-19 TECHNIQUE: 2 views of the chest were acquired. COMPARISON: [facility], CT, CT CHEST WO CON, 06/05/2018, 13:22. [facility], CR, XR CHEST 2V, 01/02/2023, 16:35. FINDINGS: Surgical changes and devices: Post median sternotomy and CABG. Lungs and pleura: Bilateral patchy airspace opacity is suspected. No pleural effusions or pneumothorax. Mediastinum: Mediastinal contours are normal. Heart size is enlarged. Bones and chest wall: No suspicious bony abnormalities. Soft tissues appear unremarkable. IMPRESSION: Bilateral patchy airspace opacity is suspected. This could be seen in the setting of COVID-[address] could be considered for further evaluation. Dictated by: Louie Rosario M.D. on 01/17/2023 at 12:41 Approved by: Louie Rosario M.D. on 01/17/2023 at 12:46
== END ==
PROVIDERS: Family Provider Family Medicine; PCP Family Medicine; Referring Provider Family Medicine; Visit Provider Family Medicine
DX: U07.1 COVID-19 (principal)
CPT/HCPCS: 71046

== ENCOUNTER 2023-01-29 13:33 | Emergency (ER) | payer MEDICARE, SELFPAY ==
[2023-01-29 13:51] VITALS: BP 152/76; PULSE 99; RESP 16; TEMP 36.4; O2SAT 99; BMI 26.6
[2023-01-29] MEDS: ACETAMINOPHEN 325 MG TABLET 650 MG PO (14:51)
[2023-01-29] MEDS: LIDOCAINE 2% (GLYDO) 6 ML GEL TOP (14:52)
--- NOTE | 2023-01-29 15:16 | ED.MALEGU ---
HPI - Male Genitourinary <GURDEEP Zuleta - Last Filed: 01/29/23 16:03> General Chief complaint: Urogenital-Male Stated complaint: Urogenital male Time Seen by Provider: 01/29/23 14:34 Source: patient Mode of arrival: Ambulatory History of Present Illness HPI Narrative: This is a 87-year-old gentleman who presents to the emergency department complaining of inability to void today, history of BPH, urinary retention intermittently that have gotten worse over the last few days. He is already on 0.8 mg of tamsulosin daily. States that his urologist is Dr. Willis out of [place]. States that he has follow-up scheduled the week after next and is scheduled to a biopsy of his prostate. He denies recent fever, chills, vomiting. Blood in his urine, states that he has urge and when he voids the stream is poor. Related Data Home Medications Medication Instructions Recorded Confirmed aspirin 81 mg tablet,delayed 81 mg PO QDAY ##0 06/17/13 07/20/22 release sertraline 100 mg tablet (Zoloft) 150 mg PO QDAY ##0 06/17/13 07/20/22 Respironics System One Series CPAP #1 ea 03/19/19 07/20/22 atenolol PO DAILY 07/20/22 tamsulosin 0.4 mg capsule 0.8 mg PO DAILY 07/20/22 07/20/22 Allergies Allergy/AdvReac Type Severity Reaction Status Date / Time No Known Drug Allergies Allergy Verified 01/29/23 13:56 Review of Systems <GURDEEP Zuleta - Last Filed: 01/29/23 16:03> Review of Systems ROS Unobtainable: All systems reviewed & are unremarkable except as noted in HPI and below Patient History <GURDEEP Zuleta - Last Filed: 01/29/23 16:03> Medical History Colitis Complex sleep apnea syndrome Excessive daytime sleepiness Hyperlipidemia Hypertension Macular degeneration Obstructive sleep apnea of adult Pericardial effusion, acute Snoring Vertigo Surgical History H/O mitral valve replacement with mechanical valve (~2009) S/P CABG (coronary artery bypass graft) Social History marital status: occupational status: previously employed Previous occupational history: Teacher Smoking Status: Never smoker substance use type: does not use Smoking Status: Never smoker alcohol intake frequency: holidays/special occasions only Substance Use Type: does not use Exam <GURDEEP Zuleta - Last Filed: 01/29/23 16:03> Narrative Exam Narrative: Reviewed vitals signs and nursing notes. General: Pleasant, sitting upright, in no acute distress, well groomed, afebrile HEENT: symmetrical facial expressions, moist mucous membranes, neck is supple CV: regular rate and rhythm, warm extremities Respiratory: normal work of breathing, without tachypnea or hypoxia. GI: abdomen soft, nondistended, without CVA tenderness bilaterally. Abdomen is not grossly distended, he has fullness to his suprapubic area but no severe pain, he has rectal tone : Urine is clear and yellow MSK: moves all extremities, no weakness, normal tone, ambulatory without deficit Skin: brisk capillary refill, without rash or wound Neuro: clear speech and normal cognition, A&O x3, GCS 15, no focal motor or sensation deficits Initial Vital Signs Initial Vital Signs: Vital Signs Temperature 97.6 F 01/29/23 13:51 Pulse Rate 99 H 01/29/23 13:51 Respiratory Rate 16 01/29/23 13:51 Blood Pressure 152/76 H 01/29/23 13:51 Pulse Oximetry 99 01/29/23 13:51 Oxygen Delivery Method Room Air 01/29/23 13:51 <Alec Hollins DO - Last Filed: 01/29/23 16:00> Initial Vital Signs Initial Vital Signs: Vital Signs Temperature 97.6 F 01/29/23 13:51 Pulse Rate 99 H 01/29/23 13:51 Respiratory Rate 16 01/29/23 13:51 Blood Pressure 152/76 H 01/29/23 13:51 Pulse Oximetry 99 01/29/23 13:51 Oxygen Delivery Method Room Air 01/29/23 13:51 Course <GURDEEP Zuleta - Last Filed: 01/29/23 16:03> Course Course Narrative: Bladder scan with 285 and inability to void Orders Ordered: ED Orders 01/29/23 15:15 UA Complete [Urinalysis and Microscopic] Stat Discontinued Medications Acetaminophen (Acetaminophen 325 Mg Tablet) 650 mg PO NOW ONE Stop: 01/29/23 14:40 Last Admin: 01/29/23 14:51 Dose: 650 mg Documented By: SB Lidocaine HCl (Lidocaine 2% (Glydo) 6 Ml Gel) 6 ml TOP NOW ONE Stop: 01/29/23 14:40 Last Admin: 01/29/23 14:52 Dose: 6 ml Documented By: SB Vital Signs Vital signs: Vital Signs - 8 hr 01/29/23 13:51 Temperature 97.6 F Pulse Rate 99 H Respiratory Rate 16 Blood Pressure 152/76 H Pulse Oximetry 99 Oxygen Delivery Method Room Air <Alec Hollins DO - Last Filed: 01/29/23 16:00> Orders Ordered: ED Orders 01/29/23 15:15 UA Complete [Urinalysis and Microscopic] Stat Discontinued Medications Acetaminophen (Acetaminophen 325 Mg Tablet) 650 mg PO NOW ONE Stop: 01/29/23 14:40 Last Admin: 01/29/23 14:51 Dose: 650 mg Documented By: SB Lidocaine HCl (Lidocaine 2% (Glydo) 6 Ml Gel) 6 ml TOP NOW ONE Stop: 01/29/23 14:40 Last Admin: 01/29/23 14:52 Dose: 6 ml Documented By: SB Vital Signs Vital signs: Vital Signs - 8 hr 01/29/23 13:51 Temperature 97.6 F Pulse Rate 99 H Respiratory Rate 16 Blood Pressure 152/76 H Pulse Oximetry 99 Oxygen Delivery Method Room Air MDM - Male Genitourinary <GURDEEP Zuleta - Last Filed: 01/29/23 16:03> Lab Data Labs: Lab Results 01/29/23 Range/Units 15:15 Urine Color Yellow Urine Appearance Clear Urine pH 6.5 (4.5-8.0) Ur Specific [place] 1.010 (1.000-1.035) Urine Protein Negative (Negative) Urine Glucose (UA) Negative (Negative) g/dL Urine Ketones Negative (NEGATIVE) Urine Occult Blood 1+ H (Negative) Urine Nitrate Negative (Negative) Urine Bilirubin Negative (NEGATIVE) Urine Urobilinogen 0.2 (0.2) E.U./dL Ur Leukocyte Esterase Negative (NEGATIVE) Urine RBC 10-30/hpf H (0-5/HPF) Urine WBC 0-1/hpf (0-5/HPF) Ur Squamous Epith Cells 0-1 /hpf (0-5/HPF) Amorphous Sediment 1+ Urine Bacteria None seen (None) Urine Mucus 1+ H (Negative) Ur Culture Indicated? Cult not indicated Urine Dip Bedside Urine Glucose Negative Bedside Urine Bilirubin - Negative Bedside Urine Ketone - Negative Urine Specific [place] 1.015 Bedside Urine Occult Blood ++ Bedside Urine pH 6.0 Bedside Urine Protein - Negative Bedside Urine Urobilinogen - Negative Bedside Urine Nitrite - Negative Bedside Urine Leukocytes - Negative Esterase MDM Narrative Medical decision making narrative: Chief Complaint: Urinary retention Multiple etiologies for patient's symptoms considered including, but not limited to: BPH, malignancy, prostatitis, colitis, pyelonephritis, acute cystitis, obstructive uropathy, constipation induced urinary retention, intra-abdominal mass, urolithiasis equina. I have reviewed the patient's vital signs and nursing notes as well as prior records if available. I have independently reviewed the patient's vital signs and nursing notes as well as prior records if available. Pertinent records include: Pertinent lab findings reviewed: Urine dip is negative for WBCs or blood UA with 10-30 RBCs. Patient does not have flank pain, does not have any fever, abdominal pain, or systemic symptoms of illness. Course of care: Scan with 285 after attempting to void and unsuccessful. Padilla catheter was placed, leg bag was given, teaching of care was provided by the nursing staff. Patient tolerated procedure well, clear yellow urine is draining. Urine dip is negative for bladder WBCs. Will discharge home with scheduled follow-up for patient with Dr. Willis in 2 weeks. He understands to stay on his normal medications, and follow up accordingly. Social considerations that may affect disposition: none Questions are addressed and there is agreement with the plan and for follow-up. Patient is appropriate for outpatient management. <Alec Hollins, DO - Last Filed: 01/29/23 16:00> Lab Data Labs: Lab Results 01/29/23 Range/Units 15:15 Urine Color Yellow Urine Appearance Clear Urine pH 6.5 (4.5-8.0) Ur Specific [place] 1.010 (1.000-1.035) Urine Protein Negative (Negative) Urine Glucose (UA) Negative (Negative) g/dL Urine Ketones Negative (NEGATIVE) Urine Occult Blood 1+ H (Negative) Urine Nitrate Negative (Negative) Urine Bilirubin Negative (NEGATIVE) Urine Urobilinogen 0.2 (0.2) E.U./dL Ur Leukocyte Esterase Negative (NEGATIVE) Urine RBC 10-30/hpf H (0-5/HPF) Urine WBC 0-1/hpf (0-5/HPF) Ur Squamous Epith Cells 0-1 /hpf (0-5/HPF) Amorphous Sediment 1+ Urine Bacteria None seen (None) Urine Mucus 1+ H (Negative) Ur Culture Indicated? Cult not indicated Urine Dip Bedside Urine Glucose Negative Bedside Urine Bilirubin - Negative Bedside Urine Ketone - Negative Urine Specific [place] 1.015 Bedside Urine Occult Blood ++ Bedside Urine pH 6.0 Bedside Urine Protein - Negative Bedside Urine Urobilinogen - Negative Bedside Urine Nitrite - Negative Bedside Urine Leukocytes - Negative Esterase Discharge Plan Departure Patient Disposition: Home Clinical Impression: Acute urinary retention Instructions: How to Care for Your Padilla Catheter -- Male, DI for Urinary Retention in Men Activity Restrictions/Additional Instructions: *You have been diagnosed with urinary retention likely secondary to your prostate issues. We did not find evidence of infection today. I will for this note to Dr. Willis, please follow-up with him. If we call you regarding your urine sample and needing antibiotics, this is always possible but did not find any infection today. I hope you feel better soon, it was a pleasure to meet you, please come back for any catheter complications. *What to do: *Please continue to take your regular medications as directed. [ ] New medication prescriptions sent to your pharmacy: [ ] [ ] New medication written as a paper prescription [ x] No new medications given *Please call and schedule follow up with your primary care provider in 2-3 days, at least for an update. Let them know you were seen in the Emergency Department for the above problem. We will electronically transmit a record of today's note if your PCP or specialist is in our system. *If you do not have a primary care provider please contact [phone] to establish care with one of the [facility] primary care providers. *Return to the Emergency Department for worsening symptoms, inability to keep liquids down, fever greater than 101F, chills, or other concerning symptom. Prescriptions: No Action sertraline [Zoloft] 100 MG tablet 150 mg PO QDAY Qty: 0 aspirin 81 MG tablet,delayed release (DR/EC) 81 mg PO QDAY Qty: 0 (DME) Respironics System One Series CPAP Qty: 1 Dose Instruction: As directed Patient Comments: Pressure: 6-14 cmH2O DME: [facility] Rx Instructions: As directed tamsulosin 0.4 mg capsule 0.8 mg PO DAILY atenolol PO DAILY Referrals: Christopher Willis MD [Non-Staff] - Tarun Paulino MD [Primary Care Provider] - Stand Alone Forms: Patient Portal/API <Alec Hollins, - Last Filed: 01/29/23 16:00> Cosign ED Attending Cosignature Attestation: Dr Hollins Co-Sign Statement: I was available for consultation during this patient's emergency department visit. This chart is signed by myself for administrative purposes only. I did not have direct contact with this patient during this visit. They were seen independently by the APC.
[2023-01-29 15:28] LABS: Appearance Urine UA CLEAR; Bilirubin Urine UA NEGATIVE (NEGATIVE); Color Urine UA YELLOW; Glucose Urine UA NEGATIVE (Negative); Ketones Urine UA NEGATIVE (NEGATIVE); Leukocyte Esterase Urine UA NEGATIVE (NEGATIVE); Nitrite Urine UA NEGATIVE (Negative); Occult Blood Urine UA 1+ (Negative); Protein Urine UA NEGATIVE (Negative); Urobilinogen Urine UA 0.2 E.U./dL (0.2); pH Urine UA 6.5 (4.5-8.0)
[2023-01-29 15:38] LABS: Amorphous Sediment Urine 1+; Bacteria Urine None Seen; Culture Indicated Urine Cult Not Indicated; Mucus Urine 1+ (Negative); RBC Urine 10-30/HPF (0-5/HPF); Squamous Epithelial Cell Urine 0-1 /HPF (0-5/HPF); WBC Urine 0-1/HPF (0-5/HPF)
[2023-01-29 16:18] VITALS: BP 125/61; PULSE 71; O2SAT 92
== END 2023-01-29 16:19 | disposition home or self-care (01) ==
PROVIDERS: Emergency Provider Nurse Practitioner Critical Care Medicine; Family Provider Family Medicine; PCP Family Medicine
DX: R33.8 Other retention of urine (principal)
CPT/HCPCS: 51798; 81001; 81003; 99283; 99284

== ENCOUNTER 2023-02-11 21:50 | Emergency (ER) | payer MEDICARE, SELFPAY ==
[2023-02-11 21:55] VITALS: BP 150/72; PULSE 83; RESP 15; TEMP 36.1; O2SAT 95; BMI 25.7
[2023-02-11] MEDS: HYDROCODONE/ACET 5/325 TABLET 1 TAB PO (22:34)
[2023-02-11] MEDS: LIDOCAINE 2% (GLYDO) 6 ML GEL TOP (22:35)
--- NOTE | 2023-02-11 22:54 | PC.NURSE ---
Patient agreeable to the providers plan to remove indwelling sparks, inject glydo, and attempt to urinate on his own. RN pulled out 9cc fluid from his catheter balloon. Once the balloon was empty, I withdrew the catheter from patient. Patient tolerated the procedure but was in a lot of pain. Injected glydo in the urethra post catheter removal.
[2023-02-12] MEDS: LIDOCAINE 2% (GLYDO) 6 ML GEL TOP (00:10)
[2023-02-12 00:29] VITALS: BP 126/64; PULSE 64; RESP 20; O2SAT 92
--- NOTE | 2023-02-12 00:47 | ED.GENADULT ---
HPI - General Adult General Chief complaint: Urogenital-Male Stated complaint: Cath issues, since the . attempted removal Time Seen by Provider: 02/11/23 21:58 Source: patient Mode of arrival: Ambulatory History of Present Illness HPI narrative: 87-year-old gentleman with a genetic history for longevity has been having difficulties with prostate and lower urinary tract symptoms. He was seen in the emergency department on January 29 with a Padilla catheter placed. He is currently on tamsulosin .8mg daily. Was seen by his urologist and prostate biopsy was done last week. In the 2 weeks since Padilla catheter has been placed he has been having pain and irritation in the midportion of his penis in what sounds like in his prostate since then. This evening he became frustrated and was pulling on the catheter. The catheter remains in place but it is no longer draining and they come in for further assessment. Reports no fever, cough, chills he has been stooling regularly no chest pain or palpitations. Related Data Home Medications Medication Instructions Recorded Confirmed aspirin 81 mg tablet,delayed 81 mg PO QDAY ##0 06/17/13 07/20/22 release sertraline 100 mg tablet (Zoloft) 150 mg PO QDAY ##0 06/17/13 07/20/22 Respironics System One Series CPAP #1 ea 03/19/19 07/20/22 atenolol PO DAILY 07/20/22 tamsulosin 0.4 mg capsule 0.8 mg PO DAILY 07/20/22 07/20/22 Allergies Allergy/AdvReac Type Severity Reaction Status Date / Time No Known Drug Allergies Allergy Verified 01/29/23 13:56 Review of Systems Review of Systems Narrative: Pertinent positive and negative findings as per HPI Patient History Medical History Colitis Complex sleep apnea syndrome Excessive daytime sleepiness Hyperlipidemia Hypertension Macular degeneration Obstructive sleep apnea of adult Pericardial effusion, acute Snoring Vertigo Surgical History H/O mitral valve replacement with mechanical valve (~2009) S/P CABG (coronary artery bypass graft) Social History marital status: occupational status: previously employed Previous occupational history: Teacher Smoking Status: Never smoker substance use type: does not use Smoking Status: Never smoker alcohol intake frequency: holidays/special occasions only Substance Use Type: does not use Exam Initial Vital Signs Initial Vital Signs: Vital Signs Temperature 97 F L 02/11/23 21:55 Pulse Rate 83 02/11/23 21:55 Respiratory Rate 15 02/11/23 21:55 Blood Pressure 150/72 H 02/11/23 21:55 Pulse Oximetry 95 02/11/23 21:55 Oxygen Delivery Method Room Air 02/11/23 21:55 General: Alert appropriate in no acute distress Respiratory: Able to speak in full sentences, no obvious respiratory distress Abdomen: Slightly tender suprapubic area. Bladder scan shows 550 cc in the bladder. Skin: No obvious rashes, warm and dry Neurologic: Grossly intact no obvious asymmetries or abnormalities Psych: appropriate insight and affect, cooperative Course Orders Ordered: Discontinued Medications Hydrocodone Bitart/Acetaminophen (Hydrocodone/Acet 5/325 Tablet) 1 tab PO NOW ONE Stop: 02/11/23 22:24 Last Admin: 02/11/23 22:34 Dose: 1 tab Documented By: SPF Lidocaine HCl (Lidocaine 2% (Glydo) 6 Ml Gel) 6 ml TOP NOW ONE Stop: 02/11/23 22:31 Last Admin: 02/11/23 22:35 Dose: 6 ml Documented By: SPF Lidocaine HCl (Lidocaine 2% (Glydo) 6 Ml Gel) 6 ml TOP NOW ONE Stop: 02/12/23 00:12 Last Admin: 02/12/23 00:10 Dose: 6 ml Documented By: OW Vital Signs Vital signs: Vital Signs - 8 hr 02/11/23 21:55 Temperature 97 F L Pulse Rate 83 Respiratory Rate 15 Blood Pressure 150/72 H Pulse Oximetry 95 Oxygen Delivery Method Room Air Medical Decision Making [facility] Narrative Medical decision making narrative: CC: Catheter problems. This is an acute problem with uncertain prognosis Complicating co-morbidities: Recent prostate biopsy and issues with catheter discomfort since placed on January 29 Data collected from: patient, Medical records reviewed: Note from January 29 regarding catheter placement is reviewed Differential considered: Dislodged catheter secondary to pulling the balloon into the prostate, clot blocking the catheter Exam documented above, pertinent findings include: Prostate in place with 550 cc of urine in the bladder, moderate abdominal pain. Lab Test not felt to be required with today's visit Treatments: Catheter was removed and the penis irritation was significantly better. Who is given about 2 hours to try to void and was unable to do so. With shared decision making we placed a neither catheter this time using a Bard dex all silicone Padilla 16 Somal[place]. It is draining somewhat bloody urine with small clots and patient's pain has been almost completely resolved. Discussion: 87-year-old gentleman with catheter problems. I suspect that he may have been having more irritation from the latex catheter and currently is tolerating the silicone catheter better. I do not suspect infection. I suspect that the blood in the urine is simply because of the distended bladder today. Has a follow-up appointment with his primary care doctor on Monday and with his urologist on to review prostate biopsy results. Encouraged him to continue with the 0.8 mg of tamsulosin. At this point he is safe for discharge home Discharge Plan Departure Patient Disposition: Home Clinical Impression: Acute urinary retention Padilla catheter problem Qualifiers: Encounter type: initial encounter Qualified Code(s): T83.9XXA - Unspecified complication of genitourinary prosthetic device, implant and graft, initial encounter Instructions: DI for Urinary Retention in Men Activity Restrictions/Additional Instructions: Thank you for coming in today I am sorry this has been such a frustrating experience for you. Your catheter was removed and you still had 550 cc of urine in your bladder and were unable to void. We replaced the catheter with an all silicone one, 16 Somali that seem to be much more comfortable and is draining urine nicely. There is a bit of blood in your urine and I suspect this is because of the distention with the 550 cc of urine. Please keep your appointments with your primary care doctor and your urologist in the coming week and continue taking the 0.8 mg of tamsulosin. If you find that you are getting worse or develop any new symptoms, please feel free to return to the emergency department for further evaluation. Prescriptions: No Action sertraline [Zoloft] 100 MG tablet 150 mg PO QDAY Qty: 0 aspirin 81 MG tablet,delayed release (DR/EC) 81 mg PO QDAY Qty: 0 (DME) Respironics System One Series CPAP Qty: 1 Dose Instruction: As directed Patient Comments: Pressure: 6-14 cmH2O DME: [facility] Rx Instructions: As directed tamsulosin 0.4 mg capsule 0.8 mg PO DAILY atenolol PO DAILY Referrals: Tarun Paulino MD [Primary Care Provider] - Stand Alone Forms: Patient Portal/API
--- NOTE | 2023-02-12 01:08 | PC.NURSE ---
Pt's new sparks catheter attached to leg bag using sterile procedure by this RN. Pt and pt's family given urethral catheter education. They have no further questions at this time.
== END 2023-02-12 01:14 | disposition home or self-care (01) ==
PROVIDERS: Emergency Provider Emergency Medicine; Family Provider Family Medicine; PCP Family Medicine
DX: R33.8 Other retention of urine (principal); T83.9XXA Unspecified complication of genitourinary prosthetic device, implant and graft, initial encounter
CPT/HCPCS: 51798; 99283; 99284

== ENCOUNTER → 2023-03-01 09:05 | Outpatient (CLI) | payer MEDICARE, SELFPAY ==
--- NOTE | 2023-03-01 | DI.NM.S_ITS ---
PROCEDURE: NM BONE SCAN WHOLE BODY RADIOPHARMACEUTICAL: 21.2 mCi Tc-99m MDP IV. INDICATIONS: Malignant neoplasm of prostate TECHNIQUE: Delayed whole-body scintigrams were obtained approximately 3-4 hours after intravenous injection of radiotracer. Anterior and posterior views were acquired from vertex to feet. the left COMPARISON: [facility], CT, CT ABDOMEN PELVIS W CON, 03/01/2023, 10:53. FINDINGS: There is a small region of increased radiotracer uptake within the left anterior iliac wing, which is indeterminate. Degenerative uptake of radiotracer at the acromioclavicular and glenohumeral joints as well as the knee and ankle joints. IMPRESSION: Indeterminate focus of increased radiotracer uptake within the left anterior iliac wing, which could be degenerative. Initial further assessment with pelvic MRI with and without intravenous contrast is recommended. Dictated by: Caryn Farley M.D. on 03/01/2023 at 16:06 Transcribed by: YOAN on 03/01/2023 at 16:08 Approved by: Caryn Farley M.D. on 03/01/2023 at 16:26
--- NOTE | 2023-03-01 | DI.CT.S_ITS ---
PROCEDURE: CT ABDOMEN PELVIS W CON INDICATIONS: Malignant neoplasm of prostate TECHNIQUE: After the administration of oral and intravenous contrast, axial sections were acquired from the lung bases to the pubic symphysis. Coronal and sagittal reformats were performed. For radiation dose reduction, the following was used: automated exposure control, adjustment of mA and/or kV according to patient size. COMPARISON:[facility], CT, NM BONE SCAN WHOLE BODY, 03/01/2023, 11:55. [facility], CT, CT-IVP, 05/24/2012, 14:06. FINDINGS: Image quality: Excellent. Lung bases: Mild bibasilar pulmonary fibrosis, right greater than left.. Heart: Mitral valvuloplasty. At least moderate coronary artery calcifications. ABDOMEN: Liver: Unremarkable. Gallbladder: Unremarkable. Biliary ducts: Unremarkable. Pancreas: Unremarkable. Spleen: Unremarkable. Adrenal Glands: Unremarkable. Kidneys and Ureters: Unremarkable. Stomach and Bowel: Sigmoid diverticulosis. Otherwise unremarkable. Peritoneum: No abnormal intraperitoneal fluid. No free air. Ventral Wall: No hernia. Abdominal Nodes: No retroperitoneal or mesenteric adenopathy by size criteria. Vessels: Aorta and inferior vena cava are normal in size. PELVIS: Pelvic Organs: Significant interval enlargement of the prostate. Bladder: Decompressed by a Padilla catheter. Diffuse wall thickening. Pelvic Nodes: No enlarged lymph nodes. Miscellaneous: No inguinal hernias are seen. Bones: No lytic or blastic bony lesions identified. Bone island, medial left iliac bone, unchanged. Bridging osteophytes bilateral SI joints. IMPRESSION: 1. Significant interval enlargement of the prostate. 2. No evidence of metastatic disease in the abdomen and pelvis. 3. At least moderate coronary artery calcifications. Comment: Please refer to a separate report from a bone scan performed on the same date. Dictated by: Victoriano Baez M.D. on 03/01/2023 at 13:32 Approved by: Victoriano Baez M.D. on 03/01/2023 at 13:43
== END ==
PROVIDERS: Family Provider Family Medicine; PCP Family Medicine; Referring Provider Student in an Organized Health Care Education/Training Program; Visit Provider Student in an Organized Health Care Education/Training Program
DX: C61 Malignant neoplasm of prostate (principal); K57.30 Diverticulosis of large intestine without perforation or abscess without bleeding; I25.10 Atherosclerotic heart disease of native coronary artery without angina pectoris
CPT/HCPCS: 74177; 78306; A9503; Q9967

== ENCOUNTER 2023-03-15 13:36 | Emergency (ER) | payer MEDICARE, SELFPAY ==
[2023-03-15 13:37] VITALS: BP 123/69; PULSE 86; RESP 18; TEMP 36.9; O2SAT 99; BMI 25.7
--- NOTE | 2023-03-15 13:52 | ED.MALEGU ---
HPI - Male Genitourinary <GURDEEP Zuleta - Last Filed: 03/15/23 15:57> General Chief complaint: Urogenital-Male Stated complaint: catheter changed Time Seen by Provider: 03/15/23 13:42 Source: patient and family Mode of arrival: Ambulatory History of Present Illness HPI Narrative: 87-year-old gentleman who is otherwise healthy and has been having difficulties with prostate and lower urinary tract symptoms for the last few months.? He was seen in the emergency department on January 29 with a Sparks catheter placed.? He is currently on tamsulosin .8mg daily.? Was seen by his urologist and prostate biopsy was done in January 2023. His last Sparks catheter was placed on 02/11/2023. Comes in for needing to have his current catheter replaced and his next appointment with Urology isn't until 03/28/2023. Denies any drainage problems, states he has a history of allergy to latex. Reports no fever, cough, chills he has been stooling regularly no chest pain or palpitations. Related Data Home Medications Medication Instructions Recorded Confirmed aspirin 81 mg tablet,delayed 81 mg PO QDAY ##0 06/17/13 07/20/22 release sertraline 100 mg tablet (Zoloft) 150 mg PO QDAY ##0 06/17/13 07/20/22 Respironics System One Series CPAP #1 ea 03/19/19 07/20/22 atenolol PO DAILY 07/20/22 tamsulosin 0.4 mg capsule 0.8 mg PO DAILY 07/20/22 07/20/22 Previous Rx's Medication Instructions Recorded cephalexin 500 mg capsule 500 mg PO QID 10 days #40 caps 03/15/23 hydrocodone 5 mg-acetaminophen 325 1 tab PO BID PRN pain #14 tabs 03/15/23 mg tablet Allergies Allergy/AdvReac Type Severity Reaction Status Date / Time No Known Drug Allergies Allergy Verified 01/29/23 13:56 Review of Systems <GURDEEP Zuleta - Last Filed: 03/15/23 15:57> Review of Systems ROS Unobtainable: All systems reviewed & are unremarkable except as noted in HPI and below Patient History <GURDEEP Zuleta - Last Filed: 03/15/23 15:57> Medical History Colitis Complex sleep apnea syndrome Excessive daytime sleepiness Hyperlipidemia Hypertension Macular degeneration Obstructive sleep apnea of adult Pericardial effusion, acute Snoring Vertigo Surgical History H/O mitral valve replacement with mechanical valve (~2009) S/P CABG (coronary artery bypass graft) Social History marital status: occupational status: previously employed Previous occupational history: Teacher Smoking Status: Never smoker substance use type: does not use Smoking Status: Never smoker alcohol intake frequency: holidays/special occasions only Substance Use Type: does not use Exam <GURDEEP Zuleta - Last Filed: 03/15/23 15:57> Narrative Exam Narrative: Reviewed vitals signs and nursing notes. General: Pleasant, sitting upright, in no acute distress, well groomed, afebrile HEENT: symmetrical facial expressions, moist mucous membranes, neck is supple CV: regular rate and rhythm, warm extremities Respiratory: normal work of breathing, without tachypnea or hypoxia. GI: abdomen soft, nondistended, without CVA tenderness bilaterally. : Urinary catheter is painful when moved, MSK: moves all extremities, no weakness, normal tone, ambulatory without deficit Skin: brisk capillary refill, without rash or wound Neuro: clear speech and normal cognition, A&O x3, GCS 15, no focal motor or sensation deficits Initial Vital Signs Initial Vital Signs: Vital Signs Temperature 98.4 F 03/15/23 13:37 Pulse Rate 86 03/15/23 13:37 Respiratory Rate 18 03/15/23 13:37 Blood Pressure 123/69 03/15/23 13:37 Pulse Oximetry 99 03/15/23 13:37 Oxygen Delivery Method Room Air 03/15/23 13:37 <Marlene Bermudez DO - Last Filed: 03/15/23 19:37> Initial Vital Signs Initial Vital Signs: Vital Signs Temperature 98.4 F 03/15/23 13:37 Pulse Rate 86 03/15/23 13:37 Respiratory Rate 18 03/15/23 13:37 Blood Pressure 123/69 03/15/23 13:37 Pulse Oximetry 99 03/15/23 13:37 Oxygen Delivery Method Room Air 03/15/23 13:37 Course <GURDEEP Zuleta - Last Filed: 03/15/23 15:57> Orders Ordered: ED Orders 03/15/23 14:30 Urine Culture Stat Urine Microscopic Stat Discontinued Medications Hydrocodone Bitart/Acetaminophen (Hydrocodone/Acet 5/325 Tablet) 1 tab PO NOW ONE Stop: 03/15/23 14:11 Last Admin: 03/15/23 14:22 Dose: 1 tab Documented By: LISA Lidocaine HCl (Lidocaine 2% (Glydo) 6 Ml Gel) 6 ml TOP NOW ONE Stop: 03/15/23 13:43 Last Admin: 03/15/23 14:23 Dose: 6 ml Documented By: LISA Vital Signs Vital signs: Vital Signs - 8 hr 03/15/23 13:37 Temperature 98.4 F Pulse Rate 86 Respiratory Rate 18 Blood Pressure 123/69 Pulse Oximetry 99 Oxygen Delivery Method Room Air <Marlene Bermudez DO - Last Filed: 03/15/23 19:37> Orders Ordered: ED Orders 03/15/23 14:30 Urine Culture Stat Urine Microscopic Stat Discontinued Medications Hydrocodone Bitart/Acetaminophen (Hydrocodone/Acet 5/325 Tablet) 1 tab PO NOW ONE Stop: 03/15/23 14:11 Last Admin: 03/15/23 14:22 Dose: 1 tab Documented By: LISA Lidocaine HCl (Lidocaine 2% (Glydo) 6 Ml Gel) 6 ml TOP NOW ONE Stop: 03/15/23 13:43 Last Admin: 03/15/23 14:23 Dose: 6 ml Documented By: RO Vital Signs Vital signs: Vital Signs - 8 hr 03/15/23 13:37 Temperature 98.4 F Pulse Rate 86 Respiratory Rate 18 Blood Pressure 123/69 Pulse Oximetry 99 Oxygen Delivery Method Room Air MDM - Male Genitourinary <GURDEEP Zuleta - Last Filed: 03/15/23 15:57> Lab Data Labs: Lab Results 03/15/23 Range/Units 14:30 Urine RBC >100/hpf H (0-5/HPF) Urine WBC 30-100/hpf H (0-5/HPF) Amorphous Sediment 2+ Urine Bacteria Moderate (10-30) H (None) Ur Culture Indicated? Specimen cultured MDM Narrative Medical decision making narrative: Chief Complaint: Urinary retention, needs sparks replaced Primary historian: patient Multiple etiologies for patient's complaint considered including, but not limited to: Urinary retention secondary to prostate cancer, UTI I have independently reviewed the patient's vital signs and nursing notes as well as prior records if available. Course of care: Sparks catheter removed, new Sparks placed which is a 2 way, 16 [place], not latex and silicone. [place] tinged but clear urine draining slowly in new Sparks bag, I obtained a urine out of this myself and sent to the lab for microscopy. Patient has scheduled follow up with Dr. Willis, I will follow this urine, if there is considerable amount of bacteria will treat for urinary tract infection. He was given pain pills for his discomfort, encouraged him to use MiraLax 1-2 times daily and titrate for soft stool, this will help him with his prostate pain. Patient's urine is positive for moderate bacteria, WBCs and RBCs, will treat with cephalexin q.i.d. times 10 days due to Sparks catheter. Will forward note to Dr. Willis, patient has scheduled follow-up with his urologist. Urine culture is pending. He does not have CVA tenderness, is afebrile, denies nausea, vomiting, fatigue. Social considerations that may affect disposition: none Questions are addressed and there is agreement with the plan and for follow-up. I consulted with the ED attending physician Dr. Bermudez as needed for higher level of care considerations and they were available for discussion and recommendations regarding plan of care and diagnostic testing. Patient is appropriate for outpatient management. <Marlene Bermudez, - Last Filed: 03/15/23 19:37> Lab Data Labs: Lab Results 03/15/23 Range/Units 14:30 Urine RBC >100/hpf H (0-5/HPF) Urine WBC 30-100/hpf H (0-5/HPF) Amorphous Sediment 2+ Urine Bacteria Moderate (10-30) H (None) Ur Culture Indicated? Specimen cultured Discharge Plan Departure Patient Disposition: Home Clinical Impression: Acute urinary retention, Prostate cancer Urinary tract infection Qualifiers: Urinary tract infection type: acute cystitis Hematuria presence: with hematuria Qualified Code(s): N30.01 - Acute cystitis with hematuria Instructions: How to Care for Your Sparks Catheter -- Male, DI for Urinary Tract Infection (UTI), DI for Prostate Cancer Activity Restrictions/Additional Instructions: *You have been diagnosed with urinary retention, your Sparks catheter was changed today. Please follow-up with Dr. Willis. Please use MiraLax daily for soft stools, titrate up to twice a day as needed for soft stool, use a pain pill as needed for worsening pain. Try to avoid having this catheter sticker too tight, whenever you move her leg it can pull if it is tight. Follow-up with Dr. Willis, thank you for coming in today, and your patience. I hope you feel better soon. *What to do: *Please continue to take your regular medications as directed. [x ] New medication prescriptions sent to your pharmacy: [ [facility]] [ ] New medication written as a paper prescription [ ] No new medications given *Please call and schedule follow up with your primary care provider in 2-3 days, at least for an update. Let them know you were seen in the Emergency Department for the above problem. We will electronically transmit a record of today's note if your PCP or specialist is in our system. *If you do not have a primary care provider please contact [phone] to establish care with one of the [facility] primary care providers. *Return to the Emergency Department for worsening symptoms, inability to keep liquids down, fever greater than 101F, chills, or other concerning symptom. Prescriptions: New hydrocodone-acetaminophen 5-325 mg tablet 1 tab PO BID PRN (Reason: pain) Qty: 14 0RF cephalexin 500 mg capsule 500 mg PO QID 10 Days Qty: 40 0RF No Action sertraline [Zoloft] 100 MG tablet 150 mg PO QDAY Qty: 0 aspirin 81 MG tablet,delayed release (DR/EC) 81 mg PO QDAY Qty: 0 (DME) Respironics System One Series CPAP Qty: 1 Dose Instruction: As directed Patient Comments: Pressure: 6-14 cmH2O DME: [facility] Rx Instructions: As directed tamsulosin 0.4 mg capsule 0.8 mg PO DAILY atenolol PO DAILY Referrals: Christopher Willis MD [Non-Staff] - Tarun Paulino MD [Primary Care Provider] - Stand Alone Forms: Patient Portal/API <Marlene Bermudez DO - Last Filed: 03/15/23 19:37> Cosign ED Attending Cosignature Attestation: I was immediately available in the department for consultation, case was not discussed with myself. Documentation has been reviewed.
[2023-03-15] MEDS: HYDROCODONE/ACET 5/325 TABLET 1 TAB PO (14:22)
[2023-03-15] MEDS: LIDOCAINE 2% (GLYDO) 6 ML GEL TOP (14:23)
--- NOTE | 2023-03-15 15:10 | PC.NURSE ---
Per order, patient urinary catheter replaced. Not enough urine present in bag for urine specimen, Crew MACHINE DESIGN CHECKER notified.
[2023-03-15 15:21] LABS: RBC Urine >100/HPF (0-5/HPF); WBC Urine 30-100/HPF (0-5/HPF)
[2023-03-15 15:22] LABS: Amorphous Sediment Urine 2+; Bacteria Urine Moderate (10-30); Culture Indicated Urine Specimen Cultured
== END 2023-03-15 15:12 | disposition home or self-care (01) ==
PROVIDERS: Emergency Provider Nurse Practitioner Critical Care Medicine; Family Provider Family Medicine; PCP Family Medicine
DX: N30.01 Acute cystitis with hematuria (principal); C61 Malignant neoplasm of prostate; R33.8 Other retention of urine
CPT/HCPCS: 81015; 87077; 87086; 87186; 99282; 99284

== ENCOUNTER → 2023-03-21 13:02 | Outpatient (CLI) | payer MEDICARE, SELFPAY ==
--- NOTE | 2023-03-21 | DI.MRI.S_ITS ---
PROCEDURE: MR PELIS WO/W CON INDICATIONS: Malignant neoplasm of prostate TECHNIQUE: Coronal HASTE, axial T1 FSE with fat saturation, 3-plane nonbreath-hold T2 FSE. After the administration of contrast, dynamic axial, delayed axial and coronal VIBE or 2-D FLASH with fat saturation through the pelvis. Optional diffusion weighted imaging and ADC may be performed. COMPARISON: None. FINDINGS: Image quality: Diffusion weighted and dynamic contrast enhanced images are diagnostic. Prostate: Gland size is 6.4 x 5.7 x 6.7 cm; ellipsoid gland volume is 127 mL. Lesion 1: Location: Left peripheral zone, lateral, posterior predominant of the mid gland on series 4, image 16 and series 5, image 16. Size: 1.7 x 3.6 centimeter T2 signal: Ill-defined, moderately hypointense DWI: Heterogeneous, mildly hyperintense ADC: Markedly hypointense Enhancement: Positive Extracapsular extension: Yes, extending to the levator complex. PI-RADS score: 5 Lesion 2: Location: Central zone, best seen on series 4, image 10 and series 5, image 20. Size: 1 x 1 centimeter T2 signal: Moderately hypointense DWI: Markedly hyperintense ADC: Markedly hypointense Enhancement: Positive Extracapsular extension: No PI-RADS score: 4 Genitourinary system: Bladder wall thickness is normal. Distal ureters are non distended. Padilla catheter present. Bowel and peritoneum: No pathologic free pelvic fluid. Inferior colon and small bowel loops are normal in caliber. Nodes and vessels: No pelvic or inguinal adenopathy by size criteria. Iliac vessels are normal in caliber. Soft tissues: Moderate left and small right inguinal hernia containing fat. Bones: Marrow demonstrates normal overall signal, without lesions to suggest metastases. IMPRESSION: PI-RADS 5 lesion with extraprostatic extension in the left peripheral zone of the mid gland, extending to the levator complex. Additional PI-RADS 4 lesion in the central zone. No evidence jayne disease. No aggressive osseous abnormality. Dictated by: Riki Ngo M.D. on 03/21/2023 at 14:38 Approved by: Riki Ngo M.D. on 03/21/2023 at 14:44
== END ==
PROVIDERS: Family Provider Family Medicine; PCP Family Medicine; Referring Provider Student in an Organized Health Care Education/Training Program; Visit Provider Student in an Organized Health Care Education/Training Program
DX: C61 Malignant neoplasm of prostate (principal)
CPT/HCPCS: 72197; A9579

== ENCOUNTER 2023-04-01 05:29 | Emergency (ER) | payer MEDICARE, SELFPAY ==
[2023-04-01] VITALS (22 sets, daily range): BP systolic 121–200; BP diastolic 60–112; PULSE 59–108; RESP 18; TEMP 36.7; O2SAT 88–97; BMI 26.7
--- NOTE | 2023-04-01 05:33 | ED_ITS ---
HPI - General Adult <Dagoberto Connor DO - Last Filed: 04/05/23 07:37> General Chief complaint: Urogenital-Male Stated complaint: urine has blood in it and legs and feet swollen Time Seen by Provider: 04/01/23 05:33 History of Present Illness HPI narrative: 88-year-old male nonsmoker with history of known prostate cancer, urinary retention, recent urinary tract infections presents with family in the chief complaint of blood noted in his urine tonight. He states that a few weeks ago he had a Sparks catheter removed and there was discussion with the urology clinic about whether not to place another catheter or 2 attempts at self catheterization at home. Initially he was doing well but until a few days ago he started having increasing trouble and resistance. He states that he is become increasingly painful and a few days ago there was nothing but blood in the catheter. He denies any current pain. He is not dizzy nor weak or lightheaded. He denies any fever or chills but does admit to at least a 10 lb weight gain and has noted swelling in his lower extremities. He denies any shortness of breath with exertion or lying flat. He has had no cough states that they had historically seen Urology in [place], but received referral to Urology group on monday for second opinion Related Data Home Medications Medication Instructions Recorded Confirmed aspirin 81 mg tablet,delayed 81 mg PO QDAY ##0 06/17/13 07/20/22 release sertraline 100 mg tablet (Zoloft) 150 mg PO QDAY ##0 06/17/13 07/20/22 Respironics System One Series CPAP #1 ea 03/19/19 07/20/22 atenolol PO DAILY 07/20/22 tamsulosin 0.4 mg capsule 0.8 mg PO DAILY 07/20/22 07/20/22 Previous Rx's Medication Instructions Recorded hydrocodone 5 mg-acetaminophen 325 1 tab PO BID PRN pain #14 tabs 03/15/23 mg tablet ciprofloxacin HCl 500 mg tablet 500 mg PO BID #14 tabs 03/19/23 (Cipro) ciprofloxacin HCl 500 mg tablet 500 mg PO Q12H #20 tabs 04/01/23 Allergies Allergy/AdvReac Type Severity Reaction Status Date / Time latex Allergy Verified 04/01/23 05:54 Review of Systems <Dagoberto Connor DO - Last Filed: 04/05/23 07:37> Review of Systems Narrative: GENERAL: Denies chills, fatigue, malaise, fever, sweats. HEENT: Denies sinus pain, ear pain, sore throat, difficulty swallowing, dizziness. RESPIRATORY: Denies dyspnea, cough, wheezing, hemoptysis, sputum. CARDIOVASCULAR: See HPI GASTROINTESTINAL: Denies nausea, vomiting, abdominal pain, diarrhea, constipation, melena. : See HPI MUSCULOSKELETAL: denies weakness, joint pain, or bony pain SKIN: Denies rash, skin lesions, or other NEUROLOGIC: Denies weakness, headache, numbness, change in speech, confusion, seizures, incoordination. PSYCHIATRIC: No concerning psychosocial issues. 12 point review of systems is negative except for those stated above Patient History <Dagoberto Connor DO - Last Filed: 04/05/23 07:37> Medical History Colitis Complex sleep apnea syndrome Excessive daytime sleepiness Hyperlipidemia Hypertension Macular degeneration Obstructive sleep apnea of adult Pericardial effusion, acute Snoring Vertigo Surgical History H/O mitral valve replacement with mechanical valve (~2009) S/P CABG (coronary artery bypass graft) Social History marital status: occupational status: previously employed Previous occupational history: Teacher Smoking Status: Never smoker substance use type: does not use Smoking Status: Never smoker alcohol intake frequency: holidays/special occasions only Substance Use Type: does not use Exam <DO Etta Mei Last Filed: 04/05/23 07:37> Narrative Exam Narrative: GENERAL: [88] year old patient appears stated age. Well-developed patient, in mild distress. HEAD: Atraumatic. Normocephalic. EYES: Pupils equal round and reactive. Extraocular motions intact. No scleral icterus. No injection or drainage. ENT: Nose without bleeding, purulent drainage. Throat without erythema, tonsilla r hypertrophy or exudate. Airway patent. NECK: Trachea midline. Non tender CARDIOVASCULAR: Regular rate and rhythm without murmurs, gallops, or rubs. RESPIRATORY: Clear to auscultation. Breath sounds equal bilaterally. No wheezes, rales, or rhonchi. GASTROINTESTINAL: Abdomen soft, non-tender, nondistended. EXTREMITIES: 1+ pitting edema bilateral lower extremities BACK: Nontender without deformity or crepitance. No flank tenderness. NEURO: AOx3. SKIN: No rash or erythema of visible areas Initial Vital Signs Initial Vital Signs: Vital Signs Pulse Oximetry 96 04/01/23 05:42 <Marlene Bermudez, DO - Last Filed: 04/02/23 07:45> Initial Vital Signs Initial Vital Signs: Vital Signs Pulse Oximetry 96 04/01/23 05:42 Course <Dagoberto Connor, DO - Last Filed: 04/05/23 07:37> Orders Ordered: Discontinued Medications Hydrocodone Bitart/Acetaminophen (Hydrocodone/Acet 5/325 Tablet) 1 tab PO NOW ONE Stop: 04/01/23 07:54 Last Admin: 04/01/23 08:05 Dose: 1 tab Documented By: NR Hydromorphone HCl (Hydromorphone 0.5 Mg Inj) 0.5 mg IV NOW ONE Stop: 04/01/23 08:14 Last Admin: 04/01/23 08:22 Dose: 0.5 mg Documented By: NR Ciprofloxacin (Cipro) 400 mg in 200 mls @ 200 mls/hr IV NOW ONE Stop: 04/01/23 09:19 Last Infusion: 04/01/23 11:07 Dose: 0 mls/hr Documented By: Admin: 04/01/23 10:00 Dose: 200 mls/hr Documented By: NR Sodium Chloride (Normal Saline 0.9%) 1,000 mls @ 1,000 mls/hr IV BOLUS ONE Stop: 04/01/23 09:19 Last Infusion: 04/01/23 12:38 Dose: 0 mls/hr Documented By: Admin: 04/01/23 10:30 Dose: 1,000 mls/hr Documented By: NR Lidocaine HCl (Lidocaine 2% (Glydo) 6 Ml Gel) 6 ml TOP NOW ONE Stop: 04/01/23 05:54 Last Admin: 04/01/23 06:10 Dose: 6 ml Documented By: BARNEY Ondansetron HCl (Ondansetron 4 Mg/2 Ml Inj) 4 mg IV NOW ONE Stop: 04/01/23 08:15 Last Admin: 04/01/23 08:21 Dose: 4 mg Documented By: NR Consultations Consultation #1: discussed with turf sales person urology at Urology. Agrees with placement of 3 way and irrigation to clear Vital Signs Vital signs: Vital Signs - 8 hr 04/01/23 05:46 04/01/23 05:42 04/01/23 06:00 Temperature 98.1 F Pulse Rate 84 Respiratory Rate 18 Blood Pressure 132/78 121/63 Pulse Oximetry 96 96 Oxygen Delivery Method Room Air 04/01/23 06:00 04/01/23 06:30 04/01/23 07:00 Temperature Pulse Rate 64 66 76 Respiratory Rate Blood Pressure Pulse Oximetry 97 96 96 Oxygen Delivery Method 04/01/23 07:30 04/01/23 07:31 04/01/23 07:31 Temperature Pulse Rate 98 H 108 H Respiratory Rate Blood Pressure 200/112 H Pulse Oximetry 91 94 Oxygen Delivery Method 04/01/23 08:00 04/01/23 08:00 04/01/23 08:20 Temperature Pulse Rate 99 H Respiratory Rate Blood Pressure 197/106 H 165/85 H Pulse Oximetry 96 Oxygen Delivery Method 04/01/23 08:20 04/01/23 08:37 04/01/23 08:38 Temperature Pulse Rate 88 Respiratory Rate Blood Pressure 157/101 H Pulse Oximetry 97 88 L Oxygen Delivery Method 04/01/23 08:38 04/01/23 09:00 04/01/23 09:00 Temperature Pulse Rate 76 72 Respiratory Rate Blood Pressure 171/83 H Pulse Oximetry 97 96 Oxygen Delivery Method 04/01/23 09:33 04/01/23 09:34 04/01/23 09:34 Temperature Pulse Rate 89 84 Respiratory Rate Blood Pressure 135/80 Pulse Oximetry 91 97 Oxygen Delivery Method 04/01/23 10:00 04/01/23 10:00 04/01/23 10:30 Temperature Pulse Rate 76 68 Respiratory Rate Blood Pressure 150/92 H Pulse Oximetry 97 94 Oxygen Delivery Method 04/01/23 10:31 04/01/23 10:31 04/01/23 11:00 Temperature Pulse Rate 64 Respiratory Rate Blood Pressure 132/60 122/78 Pulse Oximetry 95 Oxygen Delivery Method 04/01/23 11:00 Temperature Pulse Rate 67 Respiratory Rate Blood Pressure Pulse Oximetry 94 Oxygen Delivery Method <Marlene Bermudez, DO - Last Filed: 04/02/23 07:45> Orders Ordered: Discontinued Medications Hydrocodone Bitart/Acetaminophen (Hydrocodone/Acet 5/325 Tablet) 1 tab PO NOW O NE Stop: 04/01/23 07:54 Last Admin: 04/01/23 08:05 Dose: 1 tab Documented By: NR Hydromorphone HCl (Hydromorphone 0.5 Mg Inj) 0.5 mg IV NOW ONE Stop: 04/01/23 08:14 Last Admin: 04/01/23 08:22 Dose: 0.5 mg Documented By: NR Ciprofloxacin (Cipro) 400 mg in 200 mls @ 200 mls/hr IV NOW ONE Stop: 04/01/23 09:19 Last Infusion: 04/01/23 11:07 Dose: 0 mls/hr Documented By: Admin: 04/01/23 10:00 Dose: 200 mls/hr Documented By: NR Sodium Chloride (Normal Saline 0.9%) 1,000 mls @ 1,000 mls/hr IV BOLUS ONE Stop: 04/01/23 09:19 Last Infusion: 04/01/23 12:38 Dose: 0 mls/hr Documented By: Admin: 04/01/23 10:30 Dose: 1,000 mls/hr Documented By: NR Lidocaine HCl (Lidocaine 2% (Glydo) 6 Ml Gel) 6 ml TOP NOW ONE Stop: 04/01/23 05:54 Last Admin: 04/01/23 06:10 Dose: 6 ml Documented By: BARNEY Ondansetron HCl (Ondansetron 4 Mg/2 Ml Inj) 4 mg IV NOW ONE Stop: 04/01/23 08:15 Last Admin: 04/01/23 08:21 Dose: 4 mg Documented By: NR Vital Signs Vital signs: Vital Signs - 8 hr 04/01/23 05:46 04/01/23 05:42 04/01/23 06:00 Temperature 98.1 F Pulse Rate 84 Respiratory Rate 18 Blood Pressure 132/78 121/63 Pulse Oximetry 96 96 Oxygen Delivery Method Room Air 04/01/23 06:00 04/01/23 06:30 04/01/23 07:00 Temperature Pulse Rate 64 66 76 Respiratory Rate Blood Pressure Pulse Oximetry 97 96 96 Oxygen Delivery Method 04/01/23 07:30 04/01/23 07:31 04/01/23 07:31 Temperature Pulse Rate 98 H 108 H Respiratory Rate Blood Pressure 200/112 H Pulse Oximetry 91 94 Oxygen Delivery Method 04/01/23 08:00 04/01/23 08:00 04/01/23 08:20 Temperature Pulse Rate 99 H Respiratory Rate Blood Pressure 197/106 H 165/85 H Pulse Oximetry 96 Oxygen Delivery Method 04/01/23 08:20 04/01/23 08:37 04/01/23 08:38 Temperature Pulse Rate 88 Respiratory Rate Blood Pressure 157/101 H Pulse Oximetry 97 88 L Oxygen Delivery Method 04/01/23 08:38 04/01/23 09:00 04/01/23 09:00 Temperature Pulse Rate 76 72 Respiratory Rate Blood Pressure 171/83 H Pulse Oximetry 97 96 Oxygen Delivery Method 04/01/23 09:33 04/01/23 09:34 04/01/23 09:34 Temperature Pulse Rate 89 84 Respiratory Rate Blood Pressure 135/80 Pulse Oximetry 91 97 Oxygen Delivery Method 04/01/23 10:00 04/01/23 10:00 04/01/23 10:30 Temperature Pulse Rate 76 68 Respiratory Rate Blood Pressure 150/92 H Pulse Oximetry 97 94 Oxygen Delivery Method 04/01/23 10:31 04/01/23 10:31 04/01/23 11:00 Temperature Pulse Rate 64 Respiratory Rate Blood Pressure 132/60 122/78 Pulse Oximetry 95 Oxygen Delivery Method 04/01/23 11:00 Temperature Pulse Rate 67 Respiratory Rate Blood Pressure Pulse Oximetry 94 Oxygen Delivery Method Medical Decision Making <Dagoberto Connor, DO - Last Filed: 04/05/23 07:37> Lab Data 04/01/23 06:05 04/01/23 06:05 Labs: Lab Results 04/01/23 04/01/23 04/01/23 Range/Units 06:05 06:05 06:25 WBC 6.3 (4.5-11.0) X10^3/uL RBC 3.33 L (4.5-5.9) X10^6/uL Hgb 10.0 L (13.5-17.5) g/dL Hct 30.2 L (41-53) % MCV 90.5 (80-100) fL MCH 30.1 (26-34) PG MCHC 33.3 (30-36) % RDW 19.1 H (11.6-14.8) % Plt Count 134 L (150-400) X10^3/uL Neut % (Auto) Not Reportable Lymph % (Auto) Not Reportable [place] % (Auto) Not Reportable Eos % (Auto) Not Reportable Baso % (Auto) Not Reportable Lymph # (Auto) Not Reportable [place] # (Auto) Not Reportable Baso # (Auto) Not Reportable Total Counted 100 Seg Neutrophils % 50.0 (38-70) % Band Neutrophils % 2.0 L (3-7) % Lymphocytes % (Manual) 39.0 (25-45) % Monocytes % (Manual) 4.0 (2-11) % Eosinophils % (Manual) 3.0 (2-4) % Metamyelocytes % 2.0 H (-0) % Neutrophils # (Manual) 3276 ([id number]) /uL Toxic Vacuolation Present H Platelet Estimate Decreased on smear RBC Morphology See below Anisocytosis 2+ H Sodium 139 (137-145) mmol/L Potassium 3.3 L (3.4-5.1) mmol/L Chloride 111 H (98-107) mmol/L Carbon Dioxide 23 (22-32) mmol/L BUN 11 (9-20) mg/dL Creatinine 0.64 L (0.66-1.25) mg/dL Estimated GFR > 60 (>60) mL/min BUN/Creatinine Ratio 17.2 (6-22) Glucose 104 (80-110) mg/dL Calcium 8.5 (8.4-10.2) mg/dL Magnesium 2.0 (1.6-2.3) mg/dL Total Bilirubin 0.6 (0.2-1.3) mg/dL AST 27 (17-59) IU/L ALT 28 (<50) IU/L Alkaline Phosphatase 107 (38-126) U/L Total Creatine Kinase 77 (55-170) U/L CK-MB (CK-2) TNP CK-MB (CK-2) Rel Index TNP Troponin I < 0.012 (0.01-0.034) ng/mL NT-Pro-B Natriuret Pep 781 H (<450) pg/mL Total Protein 5.4 L (6.3-8.2) g/dL Albumin 3.2 L (3.5-5.0) g/dL Globulin 2.2 (1.7-4.1) g/dL Albumin/Globulin Ratio 1.5 (1.0-2.8) Urine Color Red Urine Appearance Turbid Urine pH TNP Ur Specific Bannister TNP Urine Protein TNP Urine Glucose (UA) TNP Urine Ketones TNP Urine Occult Blood TNP Urine Nitrate TNP Urine Bilirubin TNP Urine Urobilinogen TNP Ur Leukocyte Esterase TNP Urine RBC >100/hpf H (0-5/HPF) Urine WBC 5-10/hpf H (0-5/HPF) Ur Squamous Epith Cells Not Reportable Urine Bacteria Not Reportable Ur Culture Indicated? Specimen cultured MDM Narrative Medical decision making narrative: CC: 88 year old male with bloody urine Complicating co-morbidities: Age, known prostate cancer Data collected from: Patient Medical records reviewed: Prior notes reviewed in our EMR Differential considered, but not limited to: Gross hematuria versus microscopic hematuria versus infectious process versus prostate abnormality versus other Exam documented above, pertinent findings include: Patient with good color, soft abdomen, heart rate is regular, lungs clear Lab Test results independently reviewed as above. Pertinent findings: No leukocytosis or left shift, minimal dip in hemoglobin to 10.0, slight decrease in potassium to 3.3, renal function and other electrolytes within normal Consultations: Treatments: Patient has allergy to latex catheters, there are no 3 ways for irrigation that are not latex. Patient manually flushed, gross hematuria on initial exam Re-evaluations: Discussion: Disposition: <Marlene Bermudez, DO - Last Filed: 04/02/23 07:45> Lab Data Labs: Lab Results 04/01/23 04/01/23 04/01/23 Range/Units 06:05 06:05 06:25 WBC 6.3 (4.5-11.0) X10^3/uL RBC 3.33 L (4.5-5.9) X10^6/uL Hgb 10.0 L (13.5-17.5) g/dL Hct 30.2 L (41-53) % MCV 90.5 (80-100) fL MCH 30.1 (26-34) PG MCHC 33.3 (30-36) % RDW 19.1 H (11.6-14.8) % Plt Count 134 L (150-400) X10^3/uL Neut % (Auto) Not Reportable Lymph % (Auto) Not Reportable [place] % (Auto) Not Reportable Eos % (Auto) Not Reportable Baso % (Auto) Not Reportable Lymph # (Auto) Not Reportable [place] # (Auto) Not Reportable Baso # (Auto) Not Reportable Total Counted 100 Seg Neutrophils % 50.0 (38-70) % Band Neutrophils % 2.0 L (3-7) % Lymphocytes % (Manual) 39.0 (25-45) % Monocytes % (Manual) 4.0 (2-11) % Eosinophils % (Manual) 3.0 (2-4) % Metamyelocytes % 2.0 H (-0) % Neutrophils # (Manual) 3276 ([id number]) /uL Toxic Vacuolation Present H Platelet Estimate Decreased on smear RBC Morphology See below Anisocytosis 2+ H Sodium 139 (137-145) mmol/L Potassium 3.3 L (3.4-5.1) mmol/L Chloride 111 H (98-107) mmol/L Carbon Dioxide 23 (22-32) mmol/L BUN 11 (9-20) mg/dL Creatinine 0.64 L (0.66-1.25) mg/dL Estimated GFR > 60 (>60) mL/min BUN/Creatinine Ratio 17.2 (6-22) Glucose 104 (80-110) mg/dL Calcium 8.5 (8.4-10.2) mg/dL Magnesium 2.0 (1.6-2.3) mg/dL Total Bilirubin 0.6 (0.2-1.3) mg/dL AST 27 (17-59) IU/L ALT 28 (<50) IU/L Alkaline Phosphatase 107 (38-126) U/L Total Creatine Kinase 77 (55-170) U/L CK-MB (CK-2) TNP CK-MB (CK-2) Rel Index TNP Troponin I < 0.012 (0.01-0.034) ng/mL NT-Pro-B Natriuret Pep 781 H (<450) pg/mL Total Protein 5.4 L (6.3-8.2) g/dL Albumin 3.2 L (3.5-5.0) g/dL Globulin 2.2 (1.7-4.1) g/dL Albumin/Globulin Ratio 1.5 (1.0-2.8) Urine Color Red Urine Appearance Turbid Urine pH TNP Ur Specific Bann[place] TNP Urine Protein TNP Urine Glucose (UA) TNP Urine Ketones TNP Urine Occult Blood TNP Urine Nitrate TNP Urine Bilirubin TNP Urine Urobilinogen TNP Ur Leukocyte Esterase TNP Urine RBC >100/hpf H (0-5/HPF) Urine WBC 5-10/hpf H (0-5/HPF) Ur Squamous Epith Cells Not Reportable Urine Bacteria Not Reportable Ur Culture Indicated? Specimen cultured Imaging Data CT scan - abdomen/pelvis: Radiologist's Impression: Close Abdomen/Pelvis CT (Signed) Lucius Barron - 04/01/23 Launch?Image [address] [address] [address] Scan Report Signed Patient: Vinay Hendrix V MR#: [id number] : 1935 Acct:[id number] Age/Sex: 88 / M Date of Service: 04/01/23 Loc: ED Accession Number: [id number] ?? Procedure: CT kidney ureter bladder (KUB) Ordering Provider: Marlene Bermudez D.O. PROCEDURE:? CT KIDNEY URETER BLADDER (KUB) ? INDICATIONS:? hematuria, sparks catheter in place increased pain ? TECHNIQUE:? Axial sections were acquired from the lung bases to the pubic symphysis.? Coronal and sagittal reformats were performed.? For radiation dose reduction, the following was used: ?automated exposure control, adjustment of mA and/or kV according to patient size.? ? COMPARISON:? Located Within [facility], CT, CT ABDOMEN PELVIS W CON, 03/01/2023, 10:53.? Located Within [facility], CT, KIDNEY/ URETER/BLADDER, 05/15/2012, 16:09. ? FINDINGS: ? Lower thorax:? Heart size enlarged.? Dense coronary vascular calcification present.? Left basilar atelectasis. ? Liver:? Normal in size and attenuation. No contour deformity present. ? Biliary system:? No calcified cholelithiasis or pericholecystic inflammation.? No intra or extrahepatic bile duct dilatation. ? Pancreas:? Unremarkable without mass or inflammation evident. ? Spleen:? Normal in size and density. ? Adrenals:? Normal morphology and density. ? Reproductive system:? Unremarkable as visualized. ? Urinary system:? Prostate is enlarged elevates the bladder floor.? Sparks cat heter present in the bladder as well as air and high density fluid, presumably hemorrhage.? Bladder is distended almost to the level of the umbilicus.? Bilateral renal cysts are unchanged measuring up to 6.5 cm on the right.? Mild bilateral hydronephrosis is greater on the left.? Small 2-3 mm nonobstructive calculi noted the right kidney ? Gastrointestinal system:? The bowel is unremarkable without evidence of bowel obstruction or inflammation. The stomach appears unremarkable. ? Appendix:? No findings to suggest acute appendicitis. ? Peritoneal spaces:? No mesenteric or retroperitoneal adenopathy.? No free air.? No free fluid.? ? Vasculature:? The IVC, aorta and iliac vasculature are unremarkable. ? Abdominal wall:? Left inguinal hernia(s) contain fat without bowel involvement.? Small periumbilical ventral hernia contains fat as well. ? Musculoskeletal:? Normal bone mineralization.? Degenerative disc disease and arthropathy noted in lower lumbar spine.? Degenerative disc disease and arthropathy noted in lower lumbar spine.? No acute fractures.? ? IMPRESSION: ? 1. Urinary bladder contains Sparks catheter, blood and a small amount of air consistent with recent instrumentation.? Hypertrophic prostate present.? ? 2. Mild bilateral hydronephrosis greater on the left.? Small nonobstructive right renal calculi measures 2-3 mm. ? 3. Chronic findings as above ? Approved by: Lucius Barron M.D. on 04/01/2023 at 8:16? MDM Narrative Medical decision making narrative: CC: 88 year old male with bloody urine Complicating co-morbidities: Age, known prostate cancer Data collected from: Patient Medical records reviewed: Prior notes reviewed in our EMR Differential considered, but not limited to: Gross hematuria versus microscopic hematuria versus infectious process versus prostate abnormality versus other Exam documented above, pertinent findings include: Patient with good color, soft abdomen, heart rate is regular, lungs clear Lab Test results independently reviewed as above. Pertinent findings: No leukocytosis or left shift, minimal dip in hemoglobin to 10.0, slight decrease in potassium to 3.3, renal function and other electrolytes within normal Consultations: Treatments: Patient has allergy to latex catheters, there are no 3 ways for irrigation that are not latex. Patient manually flushed, gross hematuria on initial exam Re-evaluations: Discussion: Disposition: 04/01/23 Mank: Patient signed out to myself by Dr. Connor for hematuria with some urinary retention. Patient saw Urology on Monday supposed to be self cathing Monday catheterize himself at home likely cause some trauma and developed hematuria. Since then has had persistent hematuria. Has been self cathing and getting to 506 trended out regularly 3-4 times daily. Patient had catheter placed with a 2 way was flushed gross hematuria, Dr. Warner spoke with urology through [place] and they recommended three-way irrigation. Patient has been draining urine is clear pink tinged at the most no gross hematuria. Has had persistent suprapubic pain since the initial catheter was placed and even after the secondary. With bedside ultrasound catheter Sparks bulb appears to be in place. Patient does have RBCs greater than 105-10 wbc's and has had Pseudomonas in the past. Was given a dose of Cipro, pain medications and CT to evaluate for any other injury or changes patient has continued to have persistent pain. Had about 200 mL on bladder scan with Sparks catheter in place. Patient's family states he typically self caths 500 or more and gets uncomfortable around 500 mL level. Labs show hemoglobin of 10 prior was 11.5 on 12/24/2022, platelets are 134. Potassium 3.3 renal function appropriate with no other changes to electrolytes. BNP 781 today actually improved from 12/24/[address] shows: Patient's urinary bladder contains Sparks catheter, blood small amount of air consistent with catheterization hypertrophic prostate present. On my review appears clot seems to be around the Sparks catheter bulb. There is bilateral hydro greater on the left small nonobstructive right renal calculi with some chronic changing with left inguinal hernia with fat as well as periumbilical ventral hernia with fat. Patient had manual irrigation had a large amount of dark clotted blood. Patient and state that even from when the 1st catheter was placed was in quite a bit of pain he had 700 out after manual irrigation and felt much improved. Now continuing with bladder irrigation, patient had 2 L pink tinged urine but continuing to run regularly patient has had more out than he is had in he feels much better. He was watched for a period of time after irrigation completed and urine continues to drain freely. He would like to be discharged home. We discussed there is a potential to be clot, patient is to return if that occurs, would cover with antibiotic. Return precautions discussed. He has an appointment in place this Monday morning with urology in [place] for second opinion and has his primary urologist that he still follows with that they will contact. Discharge Plan Departure Patient Disposition: Home Clinical Impression: Hematuria, Acute on chronic urinary retention, UTI (urinary tract infection) Instructions: DI for Hematuria Activity Restrictions/Additional Instructions: Please follow up with your urology appointment on Monday. Continue your home medications as prescribed. Take antibiotic until completely gone. Prescription sent to [facility] in [place]. Please return for new or worsening abdominal back or flank pain, if you are cath eter is not draining if there is large clots, if you are having leakage around the catheter, fevers, vomiting or other new or concerning changes. Prescriptions: New ciprofloxacin HCl 500 mg tablet 500 mg PO Q12H Qty: 20 0RF No Action sertraline [Zoloft] 100 MG tablet 150 mg PO QDAY Qty: 0 aspirin 81 MG tablet,delayed release (DR/EC) 81 mg PO QDAY Qty: 0 hydrocodone-acetaminophen 5-325 mg tablet 1 tab PO BID PRN (Reason: pain) Qty: 14 0RF ciprofloxacin HCl [Cipro] 500 mg tablet 500 mg PO BID Qty: 14 0RF (DME) Respironics System One Series CPAP Qty: 1 Dose Instruction: As directed Patient Comments: Pressure: 6-14 cmH2O DME: [facility] Rx Instructions: As directed tamsulosin 0.4 mg capsule 0.8 mg PO DAILY atenolol PO DAILY Referrals: Christopher Willis MD [Non-Staff] - Elvin Morelos MD [Non-Staff] - Tarun Paulino MD [Primary Care Provider] - Stand Alone Forms: Patient Portal/API
[2023-04-01] MEDS: LIDOCAINE 2% (GLYDO) 6 ML GEL TOP (06:10)
[2023-04-01 06:20] LABS: Hematocrit 30.2 % (41-53); Mean Corpuscular HGB Conc 33.3 % (30-36); Mean Corpuscular Hemoglobin 30.1 PG (26-34); Mean Corpuscular Volume 90.5 fL (80-100); Platelet Count 134 X10^3/uL (150-400); Red Blood Cell Count 3.33 X10^6/uL (4.5-5.9); Red Cell Distribution Width 19.1 % (11.6-14.8); White Blood Cell Count 6.3 X10^3/uL (4.5-11.0)
[2023-04-01 06:21] LABS: Add Manual Diff / Slide Review YES
[2023-04-01 06:30] LABS: Alanine Aminotransferase 28 IU/L (<50); Albumin 3.2 g/dL (3.5-5.0); Albumin Globulin Ratio 1.5 (1.0-2.8); Alkaline Phosphatase 107 U/L (38-126); Aspartate Aminotransferase 27 IU/L (17-59); BUN Creatinine Ratio 17.2 (6-22); Bilirubin Total 0.6 mg/dL (0.2-1.3); Blood Urea Nitrogen 11 mg/dL (9-20); Calcium 8.5 mg/dL (8.4-10.2); Carbon Dioxide 23 mmol/L (22-32); Chloride 111 mmol/L (98-107); Creatine Kinase 77 U/L (55-170); Estimated Glomerular Filt Rate > 60 mL/min (>60); Globulin 2.2 g/dL (1.7-4.1); Glucose 104 mg/dL (80-110); HEMOLYSIS < 15 (0-50); Potassium 3.3 mmol/L (3.4-5.1); Sodium 139 mmol/L (137-145); Total Protein 5.4 g/dL (6.3-8.2)
[2023-04-01 06:42] LABS: NT-proBNP (BNP-Adult 18+) 781 pg/mL (<450); Troponin I < 0.012 ng/mL (0.01-0.034)
[2023-04-01 07:20] LABS: Appearance Urine UA TURBID; Color Urine UA Red
[2023-04-01 07:21] LABS: Culture Indicated Urine Specimen Cultured; RBC Urine >100/HPF (0-5/HPF); WBC Urine 5-10/HPF (0-5/HPF)
[2023-04-01 07:26] LABS: Neutrophils Absolute Manual 3276 /uL (3000-5900); Total Cells Counted 100; Toxic Vacuolation Present
[2023-04-01 07:27] LABS: Anisocytosis 2+; Platelet Estimate Decreased on smear
[2023-04-01] MEDS: HYDROCODONE/ACET 5/325 TABLET 1 TAB PO (08:05)
--- NOTE | 2023-04-01 08:20 | DI.CT.S_ITS ---
PROCEDURE: CT KIDNEY URETER BLADDER (KUB) INDICATIONS: hematuria, sparks catheter in place increased pain TECHNIQUE: Axial sections were acquired from the lung bases to the pubic symphysis. Coronal and sagittal reformats were performed. For radiation dose reduction, the following was used: automated exposure control, adjustment of mA and/or kV according to patient size. COMPARISON: [facility], CT, CT ABDOMEN PELVIS W CON, 03/01/2023, 10:53. [facility], CT, KIDNEY/ URETER/BLADDER, 05/15/2012, 16:09. FINDINGS: Lower thorax: Heart size enlarged. Dense coronary vascular calcification present. Left basilar atelectasis. Liver: Normal in size and attenuation. No contour deformity present. Biliary system: No calcified cholelithiasis or pericholecystic inflammation. No intra or extrahepatic bile duct dilatation. Pancreas: Unremarkable without mass or inflammation evident. Spleen: Normal in size and density. Adrenals: Normal morphology and density. Reproductive system: Unremarkable as visualized. Urinary system: Prostate is enlarged elevates the bladder floor. Sparks catheter present in the bladder as well as air and high density fluid, presumably hemorrhage. Bladder is distended almost to the level of the umbilicus. Bilateral renal cysts are unchanged measuring up to 6.5 cm on the right. Mild bilateral hydronephrosis is greater on the left. Small 2-3 mm nonobstructive calculi noted the right kidney Gastrointestinal system: The bowel is unremarkable without evidence of bowel obstruction or inflammation. The stomach appears unremarkable. Appendix: No findings to suggest acute appendicitis. Peritoneal spaces: No mesenteric or retroperitoneal adenopathy. No free air. No free fluid. Vasculature: The IVC, aorta and iliac vasculature are unremarkable. Abdominal wall: Left inguinal hernia(s) contain fat without bowel involvement. Small periumbilical ventral hernia contains fat as well. Musculoskeletal: Normal bone mineralization. Degenerative disc disease and arthropathy noted in lower lumbar spine. Degenerative disc disease and arthropathy noted in lower lumbar spine. No acute fractures. IMPRESSION: 1. Urinary bladder contains Sparks catheter, blood and a small amount of air consistent with recent instrumentation. Hypertrophic prostate present. 2. Mild bilateral hydronephrosis greater on the left. Small nonobstructive right renal calculi measures 2-3 mm. 3. Chronic findings as above Approved by: Lucius Barron M.D. on 04/01/2023 at 8:16
[2023-04-01] MEDS: ONDANSETRON 4 MG/2 ML INJ IV (08:21)
[2023-04-01] MEDS: HYDROMORPHONE 0.5 MG INJ IV (08:22)
--- NOTE | 2023-04-01 08:26 | PC.NURSE ---
pt is moaning out in pain, describes pain as in his penis or tip of penis. asked if it feels like he has a full bladder, pt denies this. informed MD of pts amount of pain, given [place]. Patient then starts to repeat himself. sweating profusely. sheets under patient are soaked with sweat. notified provider. bladder scan redone. showing 200 or less ML in bladder with catheter in place. balloon deflated and inflated, lots of pain with movement of catheter. provider at bedside for this, provider used ultrasound for verification of placement of sparks catheter. CT order.
--- NOTE | 2023-04-01 09:34 | PC.NURSE ---
SR. MANAGER NOTE: provided bedpan and then commode to pt; pt was unable to have a bowel movement; pt unsure if its just gas; told pt if he feels like going again to not hesitate to ask.
[2023-04-01] MEDS: CIPROFLOXACIN 400 MG/200 ML PIGGYBACK 200 MG IV (10:00)
[2023-04-01] MEDS: SODIUM CHLORIDE 0.9% 1,000 ML 1000 ML IV (10:30)
--- NOTE | 2023-04-01 12:27 | PC.NURSE ---
2nd bag of CBI started at 1130. 3000ml of sterile water used. catheter bag emptied during process for a total output of 3800ml. urine started dark red. middle of procedure urine color was fruit punch red. at very end of CBI urine was color of pink lemonade. provider notified
--- NOTE | 2023-04-01 12:51 | PC.NURSE ---
pt endorses sparks catheter at home since january. has thourough understanding and knowledge of catheter maintenance and care. Nurse went over brief education especially focused on having catheter bag below bladder at all times (especially at night time or catheter might clot again and to return if it is not draining.
== END 2023-04-01 13:02 | disposition home or self-care (01) ==
PROVIDERS: Emergency Medicine; Emergency Provider Emergency Medicine; Family Provider Family Medicine; PCP Family Medicine
DX: N39.0 Urinary tract infection, site not specified (principal); R31.9 Hematuria, unspecified; R33.9 Retention of urine, unspecified
CPT/HCPCS: 36415; 74176; 80053; 81001; 82550; 83735; 83880; 84484; 85007; 85025; 87077; 87086; 87185; 87186; 96365; 96375; 99284; J0744; J1170; J2405

== ENCOUNTER → 2023-05-12 14:29 | Outpatient (CLI) | payer MEDICARE, SELFPAY ==
[2023-05-12 15:56] LABS: Prostate Specific Antigen 1.84 ng/mL (0.10-4.00)
== END ==
PROVIDERS: Family Provider Family Medicine; PCP Family Medicine; Referring Provider Urology; Visit Provider Urology
DX: C61 Malignant neoplasm of prostate (principal)
CPT/HCPCS: 36415; 84153

== ENCOUNTER → 2023-06-26 15:24 | Outpatient (CLI) | payer MEDICARE, SELFPAY ==
--- NOTE | 2023-06-26 | DI.US.S_ITS ---
PROCEDURE: US SCROTUM INDICATIONS: 88-year-old male poor historian reports left scrotal palpable abnormality TECHNIQUE: Real-time scanning was performed of the scrotum and testicles, with image documentation. Color and pulse Doppler interrogation was performed of both testicles. COMPARISON: None. FINDINGS: Right: Testicle is normal in size at 3.9 x 2.0 x 1.8 cm, and heterogenous in echotexture. Increased arterial vasculature noted. Large right hydrocele with debris measures up to 7.7 cm. Positive varicocele measures 5.4 mm in diameter. Epididymis is also hypervascular is. Scrotal wall is also heterogenous and hypervascular. Additionally, there is a focal serpiginous hypoechogenicity within scrotal wall measuring 1.5 x 1.5 by 1.5 cm . Left: Testicle is normal in size at 3.6 x 2.1 x 1.8 cm, and heterogenous and mildly hypervascular in echotexture. [id number] hydrocele with debris 5.9 cm left hypervascular scrotal wall thickening present as well. The epididymis is both heterogenous and increased in vasculitis.. Doppler: Color and pulse Doppler demonstrate normal and symmetric arterial flow in both testicles. IMPRESSION: Heterogenous bilateral hypervascular testicles. Primary consideration would be orchitis/epididymitis with large bilateral hydroceles. Follow-up to resolution to exclude other etiologies. Serpiginous hypoechogenicity in the right scrotal wall may reflect venous varices, possibly thrombosed Approved by: Lucius Barron M.D. on 06/26/2023 at 18:36
== END ==
PROVIDERS: Family Provider Family Medicine; PCP Family Medicine; Referring Provider Family Medicine; Visit Provider Family Medicine
DX: N43.3 Hydrocele, unspecified (principal); N50.89 Other specified disorders of the male genital organs
CPT/HCPCS: 76870

== ENCOUNTER → 2023-12-11 11:44 | Outpatient (CLI) | payer MEDICARE, SELFPAY ==
[2023-12-11 13:46] LABS: Prostate Specific Antigen < 0.064 ng/mL (0.10-4.00)
== END ==
PROVIDERS: Family Provider Family Medicine; PCP Family Medicine; Referring Provider Radiology Radiation Oncology; Visit Provider Radiology Radiation Oncology
DX: C61 Malignant neoplasm of prostate (principal)
CPT/HCPCS: 36415; 84153

== ENCOUNTER 2024-04-11 12:52 | Emergency (ER) | payer MEDICARE, SELFPAY ==
[2024-04-11] VITALS (8 sets, daily range): BP systolic 132–180; BP diastolic 80–97; PULSE 62–88; RESP 16; TEMP 36.9; O2SAT 91–97; BMI 25.7
--- NOTE | 2024-04-11 13:24 | ED_ITS ---
HPI - Fall General Chief Complaint: Fall Stated Complaint: Fall, hip pain, no blood thinners Time Seen by Provider: 04/11/24 13:12 Source: patient Mode of arrival: Ambulatory History of Present Illness HPI Narrative: Patient is an 89-year-old male who several days ago fell. He has chronic issues with balance problems. The 2 falls that he has had are both mechanical falls and also with him just losing his balance. At 1 point he did hit his right- sided chest wall and right hip. He was able to ambulate afterwards but then when he fell a 2nd time it seemed to aggravate the symptoms more. He has been seen by his primary doctor. Has a prescription for pain medication. Was sent to the emergency department for further evaluation because of his discomfort. He does have bruising on the right side of his lower chest/abdomen. Does have bruising around his right arm but is able to move his right arm without issues. Describes pain in his right hip. No right knee pain. Related Data Home Medications Medication Instructions Recorded Confirmed aspirin 81 mg tablet,delayed 81 mg PO QDAY ##0 06/17/13 06/26/23 release sertraline 100 mg tablet (Zoloft) 150 mg PO QDAY ##0 06/17/13 06/26/23 Respironics System One Series CPAP #1 ea 03/19/19 06/26/23 atenolol PO DAILY 07/20/22 06/26/23 tamsulosin 0.4 mg capsule 0.8 mg PO DAILY 07/20/22 06/26/23 Previous Rx's Medication Instructions Recorded hydrocodone 5 mg-acetaminophen 325 1 tab PO BID PRN pain #14 tabs 03/15/23 mg tablet ciprofloxacin HCl 500 mg tablet 500 mg PO BID #14 tabs 03/19/23 (Cipro) ciprofloxacin HCl 500 mg tablet 500 mg PO Q12H #20 tabs 04/01/23 Allergies Allergy/AdvReac Type Severity Reaction Status Date / Time latex Allergy Verified 04/11/24 13:12 Review of Systems Review of Systems ROS Unobtainable: All systems reviewed & are unremarkable except as noted in HPI and below Patient History Medical History Complex sleep apnea syndrome Colitis Pericardial effusion, acute Vertigo Hyperlipidemia Macular degeneration Hypertension Excessive daytime sleepiness Obstructive sleep apnea of adult Snoring Surgical History H/O mitral valve replacement with mechanical valve (~2009) S/P CABG (coronary artery bypass graft) Social History marital status: occupational status: previously employed Previous occupational history: Teacher Smoking Status: Never smoker substance use type: does not use Smoking Status: Never smoker alcohol intake frequency: holidays/special occasions only Substance Use Type: does not use Exam Initial Vital Signs Initial Vital Signs: Vital Signs Temperature 98.4 F 04/11/24 13:05 Pulse Rate 88 04/11/24 13:05 Respiratory Rate 16 04/11/24 13:05 Blood Pressure 180/97 H 04/11/24 13:05 Pulse Oximetry 94 04/11/24 13:05 Oxygen Delivery Method Room Air 04/11/24 13:05 Const General: cooperative, No well developed and No ill appearing HENMT Head: normal to inspection and normocephalic Chest Other: Discomfort to palpation right-sided lower ribs laterally Resp Effort & Inspection: normal respiratory effort Auscultation: clear to auscultation bilaterally Cardio Rate: regular rate Rhythm: regular rhythm GI Inspection: normal to inspection and non-distended Palpation: soft, No firm, No guarding and No tender Skin Other: Bruising over the right flank. Extrem Other: Full range of motion of the right elbow and right shoulder. He was able to flex and extend the hip but does have discomfort in the groin region. His right knee is unremarkable. Course Orders Ordered: ED Orders 04/11/24 13:23 XR hip w pel if done RT 2V Stat XR ribs RT min 3V w CXR1V Stat Vital Signs Vital signs: Vital Signs - 8 hr 04/11/24 13:05 04/11/24 13:16 04/11/24 13:43 Temperature 98.4 F Pulse Rate 88 73 72 Respiratory Rate 16 Blood Pressure 180/97 H Pulse Oximetry 94 96 92 Oxygen Delivery Method Room Air 04/11/24 13:44 04/11/24 13:44 04/11/24 14:00 Temperature Pulse Rate 76 Respiratory Rate Blood Pressure 147/85 H 132/80 Pulse Oximetry 93 Oxygen Delivery Method 04/11/24 14:00 04/11/24 14:30 04/11/24 14:30 Temperature Pulse Rate 69 66 Respiratory Rate Blood Pressure 145/84 H Pulse Oximetry 94 96 Oxygen Delivery Method 04/11/24 15:00 04/11/24 15:00 04/11/24 15:30 Temperature Pulse Rate 62 Respiratory Rate Blood Pressure 142/83 H 176/85 H Pulse Oximetry 91 Oxygen Delivery Method 04/11/24 15:30 Temperature Pulse Rate 68 Respiratory Rate Blood Pressure Pulse Oximetry 97 Oxygen Delivery Method MDM - Fall Imaging Data Extremity x-ray #1: Radiologist's Impression: PROCEDURE: XR HIP W PEL IF DONE RT 2V INDICATIONS: R hip pain after fall TECHNIQUE: AP pelvis with lateral view(s) of the right hip(s). COMPARISON: None. FINDINGS: Bones: No fractures or dislocations. Pelvic ring appears intact. No suspicious bony lesions. Soft tissues: The visualized bowel gas pattern is normal. No suspicious soft tissue calcifications. IMPRESSION: No displaced fracture. If there remains a high clinical concern or the patient cannot bear weight, consider cross-sectional imaging to exclude an occult fracture. Extremity x-ray #2: Radiologist's Impression: PROCEDURE: XR RIBS RT MIN 3V W CXR 1V INDICATIONS: R lateral rib pain after fall TECHNIQUE: 2 views of the ribs were acquired, along with a single view chest. COMPARISON: None. FINDINGS: Surgical changes and devices: Sternotomy with surgical clips project over the heart. Bones and chest wall: Minimally displaced right lateral 10th rib fracture. Lungs and pleura: No pleural effusions or pneumothorax. Lungs appear clear. Mediastinum: Mediastinal contours appear normal. Heart size is normal. IMPRESSION: Minimally displaced right lateral 10th rib fracture. No pneumothorax. [facility] Narrative Medical decision making narrative: X-ray of the right hip shows no fracture. With how he was moving his right hip by do have a low suspicion for an occult injury. He has been ambulatory since the falls. He does have a right 10th rib fracture was just correspond to the discomfort on his right chest wall. No respiratory distress. Will discharge patient home with instructions for return precautions. He already has pain medication prescribed by his primary doctor. He expressed understanding and agreement with plan. Discharge Plan Departure Patient Disposition: Home Clinical Impression: Fracture of rib, Contusion of skin, Hip joint pain Instructions: DI for Rib Fracture Activity Restrictions/Additional Instructions: Continue to take all of your medications as directed. I do recommend that you start on a good bowel regimen. You can purchase enemas and suppositories [id number]. Use the pain medication prescribed by your primary doctor. Return to the emergency department for new or worsening symptoms. Prescriptions: No Action sertraline [Zoloft] 100 MG tablet 150 mg PO QDAY Qty: 0 aspirin 81 MG tablet,delayed release (DR/EC) 81 mg PO QDAY Qty: 0 hydrocodone-acetaminophen 5-325 mg tablet 1 tab PO BID PRN (Reason: pain) Qty: 14 0RF ciprofloxacin HCl [Cipro] 500 mg tablet 500 mg PO BID Qty: 14 0RF ciprofloxacin HCl 500 mg tablet 500 mg PO Q12H Qty: 20 0RF (DME) Respironics System One Series CPAP Qty: 1 Dose Instruction: As directed Patient Comments: Pressure: 6-14 cmH2O DME: [facility] Rx Instructions: As directed tamsulosin 0.4 mg capsule 0.8 mg PO DAILY atenolol PO DAILY Referrals: Tarun Paulino MD [Primary Care Provider] - Stand Alone Forms: Patient Portal/API
== END 2024-04-11 16:03 | disposition home or self-care (01) ==
PROVIDERS: Emergency Provider Emergency Medicine; Family Provider Family Medicine; PCP Family Medicine
DX: S22.31XA Fracture of one rib, right side, initial encounter for closed fracture (principal); S30.1XXA Contusion of abdominal wall, initial encounter; M25.551 Pain in right hip; W01.0XXA Fall on same level from slipping, tripping and stumbling without subsequent striking against object, initial encounter
CPT/HCPCS: 71101; 73502; 99281; 99283

== ENCOUNTER → 2024-04-22 11:26 | Outpatient (CLI) | payer MEDICARE, SELFPAY ==
[2024-04-22 16:23] LABS: Prostate Specific Antigen < 0.064 ng/mL (0.10-4.00)
== END ==
LOC: LAB 11:28
PROVIDERS: Family Provider Family Medicine; PCP Family Medicine; Referring Provider Urology; Visit Provider Urology
DX: C61 Malignant neoplasm of prostate (principal)
CPT/HCPCS: 36415; 84153

== ENCOUNTER → 2024-05-30 13:32 | Outpatient (CLI) | payer MEDICARE, SELFPAY ==
--- NOTE | 2024-05-30 13:34 | DI.ECHO.S_ITS ---
[facility] : : [address] : : [place] : : [id number] : : Phone: [phone] Echocardiogram Report + + :Name: MOSES VIGIL Study Date: 05/30/2024 Height: 71 in : :[facility] ReadingLocation: Weight: 180 lb : : Gender: Male BSA: 2.0 m2 : :: 1935 Age: 89 yrs BP: 130/65 mmHg: :Reason For Study: TIA : :Ordering Physician: JONY, : :PRETTY Performed By: Brent Roberts : :Referring: PRETTY BORGES : + + Interpretation Summary 1. The left ventricular contractility is mildly compromised. Estimated ejection fraction is approximately 45 to 50% with no segmental wall motion abnormalities. Grade 1 diastolic dysfunction. Mild concentric LVH. 2. The right ventricle was poorly visualized. In limited views, the contractility appears to be preserved. 3. There appears to be left atrial enlargement. The right atrium and right ventricle were not well-visualized. The left ventricular cavity appears to be normal size. 4. The mitral annulus appears to be hyperechogenic suggestive of a mitral annular ring. No significant insufficiency present. Mean gradient was not calculated. 5. Mild aortic insufficiency. 6. No obvious intracardiac shunts. 7. No obvious intracardiac masses nor thrombi. 8. No hemodynamically significant pericardial effusion. Conclusion: Mildly compromised left ventricular systolic function with mild aortic insufficiency and intact mitral valve repair Procedure: A two-dimensional transthoracic echocardiogram with color flow and Doppler was performed. The study quality was technically adequate. Comparison is made with the echocardiogram of 06/08/2010. POOR ECG SIGNAL DUE TO PATIENT MOVEMENT. Left Ventricle: The left ventricle is normal in size. Left ventricular wall thickness is mildly increased. The ejection fraction is estimated to be 45- 50%. Right Ventricle: The right ventricle is not well visualized. Atria: The left atrium is severely dilated. Right atrium not well visualized. The interatrial septum grossly appears intact with no obvious evidence for an atrial septal defect. Mitral Valve: S/P MV REPAIR. There is no mitral valve stenosis. There is trace mitral regurgitation. Aortic Valve: The aortic valve is trileaflet. There is no aortic valve stenosis. There is mild aortic regurgitation. Tricuspid Valve: The tricuspid valve is not well visualized. There is no tricuspid stenosis. There is trace tricuspid regurgitation. Pulmonic Valve: The pulmonic valve is not well visualized. There is no pulmonic valvular stenosis. There is trace pulmonic regurgitation. Great Vessels: The aortic root is mildly dilated. The ascending aorta is mildly enlarged. The inferior vena cava was not visualized. Pericardium/ Pleura There is no pericardial effusion. There is no pleural effusion. MMode/2D Measurements & Calculations LVIDd: 4.7 cm LVOT diam: 2.3 cm LVIDs: 3.5 cm Ao root diam: 4.1 cm FS: 25.0 % asc Aorta Diam: 4.1 cm IVSd: 1.2 cm LVPWd: 1.2 cm LV pappas. diameter/BSA (cm/m^2): 2.3 LV sys. diameter/BSA (cm/m^2): 1.7 LA A2 area: 33.5 cm2 RA long axis: 6.1 cm LA A4 area: 30.8 cm2 RA area: 23.1 cm2 LA length (vol): 6.7 cm RA vol: 74.0 ml LA vol: 131.6 ml RA : 36.7 ml/m2 LA vol index: 65.2 ml/m2 RVD1 (basal): 4.3 cm RVD2 (mid): 3.8 cm TAPSE: 1.0 cm Doppler Measurements & Calculations Ao V2 max: 104.1 cm/sec LVOT Max Jose M: 86.8 cm/sec Ao V2 mean: 79.5 cm/sec LV V1 max P.0 mmHg Ao max P.3 mmHg LV V1 VTI: 19.3 cm Ao mean P.7 mmHg SALINA(I,D): 3.3 cm2 Ao V2 VTI: 25.4 cm SALINA(V,D): 3.6 cm2 sev ratio: 0.76 SALINA indexed to BSA (cm^2/m^2): 1.6 MV E max jose m: 85.6 cm/sec PA V2 max: 81.4 cm/sec MV A max jose m: 142.6 cm/sec PA V2 mean: 51.9 cm/sec MV E/A: 0.60 PA mean P.2 mmHg Med Peak E' Jose M: 4.0 cm/sec PA pr(Accel): 29.3 mmHg E/E' med: 21.5 Lat Peak E' Jose M: 5.9 cm/sec E/E' lat: 14.5 E/e' average: 18.0 MV dec time: 0.41 sec SV(LVOT): 83.3 ml Reading Physician:
== END ==
PROVIDERS: Family Provider Family Medicine; PCP Family Medicine; Referring Provider Family Medicine; Visit Provider Family Medicine
DX: G45.9 Transient cerebral ischemic attack, unspecified (principal); I35.1 Nonrheumatic aortic (valve) insufficiency; I77.810 Thoracic aortic ectasia; I77.89 Other specified disorders of arteries and arterioles
CPT/HCPCS: 93306